=== PATIENT | male | born 1955 | race Two or more races ===

== ENCOUNTER 2017-02-19 13:37 | Inpatient (IN) | payer OTHER ==
[~2017-02-19] VITALS: Ht 175.3 cm; Wt 77.1 kg
[2017-02-19] VITALS (34 sets, daily range): BP systolic 47–115; BP diastolic 18–62
[2017-02-19] MEDS ORDERED: Famotidine 20 MG/ 2ML VIAL IVP ONE (13:45)
[2017-02-19] MEDS ORDERED: UNOBMED (13:51)
[2017-02-19] MEDS ORDERED: Octreotide Acetate 500 MCG in Sodium Chloride 499 ML IV SCH ×2 (14:15→15:00)
[2017-02-19] MEDS ORDERED: SandoSTATIN 50mcg Inj IVP ONE (14:15)
[2017-02-19 14:18] LABS: BASOPHILS % (AUTO) 0.6 % (0.0-2.0); EOSINOPHILS % (AUTO) 0.1 % (0.0-3.0); LYMPHOCYTES % (AUTO) 15.7 % (20.0-45.0); MEAN CORPUSCULAR HEMOGLOBIN 28.4 PG (27.0-31.0); MEAN CORPUSCULAR HGB CONC 31.6 G/DL (32.0-36.0); MEAN CORPUSCULAR VOLUME 90 FL (80-99); MEAN PLATELET VOLUME 8.5 FL (6.5-10.1); MONOCYTES % (AUTO) 7.9 % (1.0-10.0); NEUTROPHILS % (AUTO) 75.7 % (45.0-75.0); PLATELET COUNT 117 K/UL (150-450); RED BLOOD COUNT 3.14 M/UL (4.70-6.10); RED CELL DISTRIBUTION WIDTH 15.3 % (11.6-14.8); WHITE BLOOD COUNT 11.8 K/UL (4.8-10.8)
[2017-02-19 14:27] LABS: INR 1.2 (0.9-1.1); PROTHROMBIN TIME 12.4 SEC (9.30-11.50)
[2017-02-19 14:31] LABS: ALBUMIN/GLOBULIN RATIO 1.2 (1.0-2.7); CALCIUM 7.2 mg/dL (8.6-10.2); CREATININE 1.3 mg/dL (0.7-1.2); GLOMERULAR FILTRATION RATE 56.5 mL/min (>60); POTASSIUM 3.7 mEQ/L (3.4-4.9); TOTAL PROTEIN 5.2 g/dL (6.6-8.7)
[2017-02-19 14:43] LABS: BILIRUBIN,DIRECT 0.3 mg/dL (0.1-0.3)
[2017-02-19] MEDS ORDERED: Midazolam 2mg/2ml Inj ONE ×2 (15:18→15:29)
--- NOTE | 2017-02-19 15:23 | Emergency Room Report ---
History of Present Illness General Chief Complaint: Syncope Source: Patient, EMS (Ulices Dhaliwal) Present Illness HPI Patient is a 61-year-old male brought in by EMS after the hematemesis. Patient noted to have large amount of red blood vomiting. Patient reported having some epigastric pain. He states his prior history of cirrhosis. Patient has history of alcohol abuse. Patient states he had been drinking alcohol earlier in the day. Patient had large amount of hematemesis and had a syncopal episode with EMS. Patient had not been taking any medications. He reports being somewhat thirsty. (Ulices Dhaliwal) Allergies: Coded Allergies: No Known Allergies (Unverified , 02/19/17) Patient History Past Medical History: see triage record Reviewed Nursing Documentation: PMH: Agreed, PSxH: Agreed (Ulices Dhaliwal) Nursing Documentation-PMH Past Medical History: No History, Except For Hx Gastrointestinal Problems: Yes - ETOH ABUSE (Ulices Dhaliwal) Review of Systems All Other Systems: limited - by acuity (Ulices Dhaliwal) Physical Exam Vital Signs Date Time Temp Pulse Resp B/P Pulse Ox O2 Delivery O2 Flow Rate FiO2 02/19/17 13:33 98.8 96 20 88/58 98 Room Air General Appearance: GCS 15, severe distress Eyes: bilateral eye PERRL ENT: normal pharynx, no angioedema, normal voice, other - rhinophyma Neck: full range of motion, supple Respiratory: lungs clear, normal breath sounds, no rhonchi Cardiovascular #1: regular rate, rhythm, no edema, no gallop Musculoskeletal: normal inspection, back normal Neurologic: normal inspection, alert, oriented x3, responsive, interactive media specialist III-XII nml as tested Psychiatric: normal inspection Skin: normal inspection, normal color, no rash, warm/dry (Ulices Dhaliwal) Procedures Critical Care Time Critical Care Time Patient had a critical medical condition which untreated could potentially result in life or limb threatening injury. Total critical care time excluding procedures approximately 45 minutes. (Ulices Dhaliwal) Critical Care Time Total Critical Care Time: 90 min bedside evaluation and treatment excludes procedures (CVP). Reason for critical care: variceal bleed, hypotension, sedation, pressors, transfusion FFP and blood Possible complications: hypotension, hypertension, TN, shock, arrhythmias, metabolic acidosis, end organ damage, respiratory failure. Interventions: transfusions blood and FFP, pressors, sedation Course: Patient with UGI bleed presumed variceal. Intubated and transfused by Dr. Dhaliwal. CVP by me. Continued hypotension on pressors. Repeat transfusions and FFP ordered. Discussed with GI. Repeat evaluations for sedation. Antibiotics ordered for leukocytosis with elevated lactate. Repeat evaluations for hypotension. BP somewhat better before transfer to ICU. Consultations: nursing staff, EMS, pharmacy (repeat discussions regarding sedation), GI data communications software consultant. Performed by: Dr. Rosario Tolerated well condition = critical (Alexei Rosario M.D.) Central Line Central Line : Consent: Emergent Central Line Lumen: triple Maximal Sterile Barrier Tech: yes cap, yes mask, yes sterile gown, yes sterile gloves, yes large sterile sheet, yes hand hygiene, yes chlorhexidine prep Central Line Postion: femoral (R) Complications: none Central Line Post Position: sutured, good blood return Attempts: One Patient Tolerated: Well Progress blood sent for repeat h/h EBL = 5 cc. (Alexei Rosario M.D.) Medical Decision Making Diagnostic Impression: Primary Impression: Hematemesis Qualified Codes: K92.0 - Hematemesis Additional Impressions: Hypotension Qualified Codes: I95.89 - Other hypotension Upper GI bleed Thrombocytopenia Coagulopathy Leukocytosis Qualified Codes: D72.829 - Elevated white blood cell count, unspecified Cirrhosis Qualified Codes: K70.30 - Alcoholic cirrhosis of liver without ascites ER Course Patient presented for hematemesis. Differential diagnosis included wasn't limited to gastritis, peptic ulcer disease, esophageal varices among others.Because of complexity of patient's case laboratory testing and imaging studies were ordered. The patient started on IV fluids. He was given IV Pepcid. Patient is noted to have a large amount of hematemesis while in the emergency department bright red blood. The patient subsequently had a syncopal episode. Patient noted be hypotensive. The patient was intubated for airway protection. Patient was noted to have hypotension. 2 IV access was established. was contacted for GI consult by Dr. Kent. Dr. Kent was contacted for inpatient management due to capitated physician. Labs Test 02/19/17 13:50 White Blood Count 11.8 K/UL (4.8-10.8) Red Blood Count 3.14 M/UL (4.70-6.10) Hemoglobin 8.9 G/DL (14.2-18.0) Hematocrit 28.1 % (42.0-52.0) Mean Corpuscular Volume 90 FL (80-99) Mean Corpuscular Hemoglobin 28.4 PG (27.0-31.0) Mean Corpuscular Hemoglobin Concent 31.6 G/DL (32.0-36.0) Red Cell Distribution Width 15.3 % (11.6-14.8) Platelet Count 117 K/UL (150-450) Mean Platelet Volume 8.5 FL (6.5-10.1) Neutrophils (%) (Auto) 75.7 % (45.0-75.0) Lymphocytes (%) (Auto) 15.7 % (20.0-45.0) Monocytes (%) (Auto) 7.9 % (1.0-10.0) Eosinophils (%) (Auto) 0.1 % (0.0-3.0) Basophils (%) (Auto) 0.6 % (0.0-2.0) Prothrombin Time 12.4 SEC (9.30-11.50) Prothromb Time International Ratio 1.2 (0.9-1.1) Activated Partial Thromboplast Time 30 SEC (23-33) Sodium Level 140 mEQ/L (135-145) Potassium Level 3.7 mEQ/L (3.4-4.9) Chloride Level 101 mEQ/L (98-107) Carbon Dioxide Level 17 mEQ/L (20-30) Anion Gap 22 (5-15) Blood Urea Nitrogen 8 mg/dL (7-23) Creatinine 1.3 mg/dL (0.7-1.2) Estimat Glomerular Filtration Rate 56.5 mL/min (>60) Glucose Level 243 mg/dL (74-106) Calcium Level 7.2 mg/dL (8.6-10.2) Total Bilirubin 1.3 mg/dL (0.0-1.2) Direct Bilirubin 0.3 mg/dL (0.1-0.3) Aspartate Amino Transf (AST/SGOT) 33 U/L (5-40) Alanine Aminotransferase (ALT/SGPT) 16 U/L (3-41) Alkaline Phosphatase 92 U/L (40-129) Total Protein 5.2 g/dL (6.6-8.7) Albumin 2.9 g/dL (3.5-5.2) Globulin 2.3 g/dL Albumin/Globulin Ratio 1.2 (1.0-2.7) Lipase 43 U/L (< 60) (Ulices Dhaliwal) ER Course Please see the note from Dr. Dhaliwal. Her graft patient became hypotensive after the first 2 units of blood. The event was ordered and also 2 units of blood were ordered stat. In addition to that 2 units of fresh frozen plasma have been ordered by Dr. Dhaliwal. I with 4 units of fresh frozen plasma. His blood pressure was 38. Dr. Arango was present emergency department and examined the patient. We discussed the patient's care and the fact that his prognosis was poor. 19:20 BP has been fluctuating. Slightly better with blood. FFP is being given. Sedation with versed inadequate. Fentanyl also added. Unable with hypotension. Repeat versed. Antibiotics ordered for leukocytosis. BP better before transfer to floor. (Alexei Rosario M.D.) Last Vital Signs Date Time Temp Pulse Resp B/P Pulse Ox O2 Delivery O2 Flow Rate FiO2 02/19/17 14:10 92 22 93/62 96 Room Air 02/19/17 13:33 98.8 Status: unchanged (Ulices Dhaliwal) Status: improved (Alexei Rosario M.D.) Disposition: ADMITTED INPATIENT Condition: Critical Referrals: [facility],REFERRING (PCP) Ulices Dhaliwal Feb 19, 2017 15:23 Alexei Rosario M.D. Feb 19, 2017 15:27
[2017-02-19] MEDS ORDERED: Midazolam 2mg/2ml Inj IVP ONE ×3 (15:30→16:00)
[2017-02-19] MEDS ORDERED: Nitroglycerin Subl 0.4mg tab (Bottle Of 25) SL PRN (15:45)
[2017-02-19] MEDS ORDERED: Phytonadione 10 mg/mL 1ml amp ONE ×2 (15:49→15:55)
[2017-02-19] MEDS ORDERED: Pantoprazole Inj ONE (15:50)
[2017-02-19] MEDS ORDERED: Morphine Sulfate 2mg/ml Inj IVP PRN (16:00)
[2017-02-19] MEDS: Midazolam for drip 50 MG in D5W 90 ML IV SCH ×2 (16:19→18:37)
[2017-02-19] MEDS ORDERED: Phytonadione 10 MG in D5W 55 ML IVPB ONE (16:30)
[2017-02-19 16:33] LABS: MEAN CORPUSCULAR HEMOGLOBIN 31.6 PG (27.0-31.0); MEAN CORPUSCULAR HGB CONC 35.2 G/DL (32.0-36.0); MEAN CORPUSCULAR VOLUME 90 FL (80-99); MEAN PLATELET VOLUME 10.2 FL (6.5-10.1); PLATELET COUNT 100 K/UL (150-450); RED BLOOD COUNT 2.56 M/UL (4.70-6.10); RED CELL DISTRIBUTION WIDTH 15.4 % (11.6-14.8); WHITE BLOOD COUNT 19.4 K/UL (4.8-10.8)
[2017-02-19] MEDS: DOPamine 400mg/250ml 250 ML IV SCH ×2 (16:38→21:34)
[2017-02-19] MEDS ORDERED: Pantoprazole 80 MG in NS 250ml IV ONE (16:45)
[2017-02-19] MEDS ORDERED: ESOMEPRAZOLE SODIUM IV SCH (17:00)
[2017-02-19] MEDS ORDERED: NS IV SCH (17:00)
[2017-02-19] MEDS ORDERED: Esomeprazole sodium 40mg vial IVP ONE (17:00)
[2017-02-19] MEDS ORDERED: Levophed 4mg/4mL Inj IV ONE ×2 (17:11→19:42)
[2017-02-19 17:24] LABS: REFLEX LACTIC ACID YES OR NO YES
[2017-02-19 18:13] LABS: ANISOCYTOSIS 1+; BAND NEUTROPHILS % (MANUAL) 5 % (0-8); BASOPHILS % (MANUAL) 0 % (0-2); EOSINOPHILS % (MANUAL) 0 % (0-3); HYPOCHROMASIA 1+; LYMPHOCYTES % (MANUAL) 5 % (20-45); NEUTROPHILS % (MANUAL) 86 % (45-75); PLATELET ESTIMATE DECREASED; PLATELET MORPHOLOGY NORMAL; TOTAL CELLS COUNTED 100
--- NOTE | 2017-02-19 19:00 | History and Physical ---
History of Present Illness General Date patient seen: Feb 19, 2017 Reason for Hospitalization: Syncope Present Illness HPI 61-year-old male with hx of ETOH abuse, liver cirrhosis brought in by EMS after the hematemesis. Patient noted to have large amount of red blood vomiting. Patient states he had been drinking alcohol earlier in the day. Patient had large amount of hematemesis and had a syncopal episode with EMS. He was intubated in ER to protect his airway. GI is called already for endoscopy. Allergies: Coded Allergies: No Known Allergies (Unverified , 02/19/17) Medication History Miscellaneous Medications Unable to Obtain Medications (Unable To Obtain Meds), (Reported) Patient History Healthcare decision maker Resuscitation status Advanced Directive on File Past Medical/Surgical History Past Medical/Surgical History: (1) ETOH abuse (2) Cirrhosis Review of Systems All Other Systems: negative except mentioned in HPI Physical Exam General Appearance: WD/WN Lines, tubes and drains: peripheral HEENT: normocephalic, atraumatic Neck: non-tender, normal alignment Respiratory/Chest: chest wall non-tender, lungs clear Breasts: no masses Cardiovascular/Chest: normal peripheral pulses Abdomen: normal bowel sounds Genitourinary/Rectal: normal genital exam Extremities: normal range of motion Neurologic: bobbin disker II-XII grossly normal Last 24 Hour Vital Signs Date Time Temp Pulse Resp B/P Pulse Ox O2 Delivery O2 Flow Rate FiO2 02/19/17 18:37 171/111 02/19/17 18:37 31 02/19/17 17:16 47/29 02/19/17 17:05 114 20 100 02/19/17 16:51 100 02/19/17 16:48 90/46 02/19/17 16:44 74/40 02/19/17 16:38 91/59 02/19/17 16:19 19 02/19/17 15:16 101 14 100 02/19/17 14:10 92 22 93/62 96 Room Air 02/19/17 13:53 93 22 Room Air 02/19/17 13:45 92 21 83/49 99 Room Air 02/19/17 13:33 98.8 96 20 88/58 98 Room Air Laboratory Tests Test 02/19/17 13:50 02/19/17 16:25 White Blood Count 11.8 K/UL (4.8-10.8) H 19.4 K/UL (4.8-10.8) #H Red Blood Count 3.14 M/UL (4.70-6.10) L 2.56 M/UL (4.70-6.10) L Hemoglobin 8.9 G/DL (14.2-18.0) L 8.1 G/DL (14.2-18.0) L Hematocrit 28.1 % (42.0-52.0) L 23.0 % (42.0-52.0) L Mean Corpuscular Volume 90 FL (80-99) 90 FL (80-99) Mean Corpuscular Hemoglobin 28.4 PG (27.0-31.0) 31.6 PG (27.0-31.0) H Mean Corpuscular Hemoglobin Concent 31.6 G/DL (32.0-36.0) L 35.2 G/DL (32.0-36.0) Red Cell Distribution Width 15.3 % (11.6-14.8) H 15.4 % (11.6-14.8) H Platelet Count 117 K/UL (150-450) L 100 K/UL (150-450) L Mean Platelet Volume 8.5 FL (6.5-10.1) 10.2 FL (6.5-10.1) H Neutrophils (%) (Auto) 75.7 % (45.0-75.0) H % (45.0-75.0) Lymphocytes (%) (Auto) 15.7 % (20.0-45.0) L % (20.0-45.0) Monocytes (%) (Auto) 7.9 % (1.0-10.0) % (1.0-10.0) Eosinophils (%) (Auto) 0.1 % (0.0-3.0) % (0.0-3.0) Basophils (%) (Auto) 0.6 % (0.0-2.0) % (0.0-2.0) Prothrombin Time 12.4 SEC (9.30-11.50) H Prothromb Time International Ratio 1.2 (0.9-1.1) H Activated Partial Thromboplast Time 30 SEC (23-33) Sodium Level 140 mEQ/L (135-145) Potassium Level 3.7 mEQ/L (3.4-4.9) Chloride Level 101 mEQ/L (98-107) Carbon Dioxide Level 17 mEQ/L (20-30) L Anion Gap 22 (5-15) H Blood Urea Nitrogen 8 mg/dL (7-23) Creatinine 1.3 mg/dL (0.7-1.2) H Estimat Glomerular Filtration Rate 56.5 mL/min (>60) Glucose Level 243 mg/dL (74-106) H Lactic Acid Level 11.60 mmol/L (0.66-2.22) H Calcium Level 7.2 mg/dL (8.6-10.2) L Total Bilirubin 1.3 mg/dL (0.0-1.2) H Direct Bilirubin 0.3 mg/dL (0.1-0.3) Aspartate Amino Transf (AST/SGOT) 33 U/L (5-40) Alanine Aminotransferase (ALT/SGPT) 16 U/L (3-41) Alkaline Phosphatase 92 U/L (40-129) Total Protein 5.2 g/dL (6.6-8.7) L Albumin 2.9 g/dL (3.5-5.2) L Globulin 2.3 g/dL Albumin/Globulin Ratio 1.2 (1.0-2.7) Lipase 43 U/L (< 60) Differential Total Cells Counted 100 Neutrophils % (Manual) 86 % (45-75) H Lymphocytes % (Manual) 5 % (20-45) L Monocytes % (Manual) 4 % (1-10) Eosinophils % (Manual) 0 % (0-3) Basophils % (Manual) 0 % (0-2) Band Neutrophils 5 % (0-8) Platelet Estimate Decreased L Platelet Morphology Normal Hypochromasia 1+ Anisocytosis 1+ Height (Feet): 5 Height (Inches): 9.00 Weight (Pounds): 170 Medications Current Medications Medications (Trade) Dose Ordered Sig/Chela Route PRN Reason Start Time Stop Time Status Last Admin Dose Admin Acetaminophen (Tylenol) 650 mg Q4H PRN ORAL fever 02/19/17 16:30 03/21/17 16:29 Dextrose STAT PRN IV Hypoglycemia 02/19/17 15:45 03/21/17 15:44 Dextrose/Sodium Chloride 1,000 ml @ 100 mls/hr Q10H IV 8/11/17 17:30 03/21/17 17:29 Dopamine HCl/ Dextrose 250 ml @ 0 mls/hr Q24H IV 02/19/17 16:00 03/21/17 15:59 02/19/17 16:38 Esomeprazole Sodium 80 mg/ Sodium Chloride 250 ml @ 25 mls/hr Q10H IV 02/19/17 17:00 03/21/17 16:59 Midazolam HCl/ Dextrose (Versed/D5W) 100 ml @ 0 mls/hr Q24H IV 02/19/17 15:30 03/21/17 15:29 02/19/17 18:37 Morphine Sulfate (Morphine Sulfate) 2 mg Q4H PRN IVP severe Pain (Pain Scale 7-10) 02/19/17 16:00 02/26/17 15:59 Nitroglycerin (Ntg) 0.4 mg Q5M X 3 DOSES PRN SL Prn Chest Pain 02/19/17 15:45 03/21/17 15:44 Norepinephrine Bitartrate/ Dextrose (Levophed/D5W) 250 ml @ 0 mls/hr Q24H IV 02/19/17 17:15 03/21/17 17:14 02/19/17 17:16 Octreotide Acetate 500 mcg/ Sodium Chloride 500 ml @ 50 mls/hr Q10H IV 02/19/17 15:00 03/21/17 14:59 02/19/17 14:41 Ondansetron HCl (Zofran) 4 mg Q6H PRN IVP Nausea & Vomiting 02/19/17 15:45 03/21/17 15:44 Assessment/Plan Problem List: (1) Respiratory failure, acute ICD Codes: J96.00 - Acute respiratory failure, unspecified whether with hypoxia or hypercapnia SNOMED: 04525429 (2) Hematemesis ICD Codes: K92.0 - Hematemesis SNOMED: 7050727 Qualifiers: Qualified Codes: K92.0 - Hematemesis (3) Thrombocytopenia ICD Codes: D69.6 - Thrombocytopenia, unspecified SNOMED: 229103741 (4) Hypotension ICD Codes: I95.9 - Hypotension, unspecified SNOMED: 18404809 Qualifiers: Qualified Codes: I95.89 - Other hypotension (5) Upper GI bleed ICD Codes: K92.2 - Gastrointestinal hemorrhage, unspecified SNOMED: 93183097 (6) ETOH abuse ICD Codes: F10.10 - Alcohol abuse, uncomplicated SNOMED: 46994298 Respiratory: monitor respiratory rate, adjust FIO2, CXR Cardiac: stop pressors, continue to monitor HR/BP Renal: F/U I&O, check electrolytes Infectious Disease: check cultures Gastrointestinal: continue feedings/current rate Endocrine: monitor blood sugar, check TSH Hematologic: monitor H/H Neurologic: PRN Ativan Affect: PRN ativan Prophylaxis: Heparin Disposition: keep in ICU Discussed with: nurses, consultants, heel caser ROSALIE MIDDLETON Feb 19, 2017 18:59
[2017-02-19 19:43] LABS: MEAN CORPUSCULAR HEMOGLOBIN 32.3 PG (27.0-31.0); MEAN CORPUSCULAR HGB CONC 33.4 G/DL (32.0-36.0); MEAN CORPUSCULAR VOLUME 97 FL (80-99); MEAN PLATELET VOLUME 9.9 FL (6.5-10.1); PLATELET COUNT 31 K/UL (150-450); RED BLOOD COUNT 2.67 M/UL (4.70-6.10); RED CELL DISTRIBUTION WIDTH 13.4 % (11.6-14.8); WHITE BLOOD COUNT 12.5 K/UL (4.8-10.8)
[2017-02-19] MEDS ORDERED: metroNIDAZOLE 500mg 100 ML IVPB ONE (19:45)
[2017-02-19] MEDS ORDERED: Cefepime HCl 1 GM in D5W 55 ML IVPB ONE (19:45)
[2017-02-19 20:09] LABS: ALBUMIN/GLOBULIN RATIO 1.7 (1.0-2.7); CALCIUM 6.6 mg/dL (8.6-10.2); CREATININE 1.3 mg/dL (0.7-1.2); GLOMERULAR FILTRATION RATE 56.5 mL/min (>60); POTASSIUM 4.8 mEQ/L (3.4-4.9); TOTAL PROTEIN 2.7 g/dL (6.6-8.7)
[2017-02-19] MEDS ORDERED: Midazolam for drip 50 MG in D5W 90 ML IV SCH (21:01)
[2017-02-19 21:39] LABS: BAND NEUTROPHILS % (MANUAL) 6 % (0-8); LYMPHOCYTES % (MANUAL) 15 % (20-45); NEUTROPHILS % (MANUAL) 75 % (45-75); TOTAL CELLS COUNTED 100
[2017-02-19 21:40] LABS: ANISOCYTOSIS 1+; BASOPHILS % (MANUAL) 0 % (0-2); EOSINOPHILS % (MANUAL) 0 % (0-3); HYPOCHROMASIA 1+; PLATELET ESTIMATE DECREASED; PLATELET MORPHOLOGY NORMAL
[2017-02-19 21:56] LABS: MEAN CORPUSCULAR HEMOGLOBIN 32.4 PG (27.0-31.0); MEAN CORPUSCULAR HGB CONC 33.2 G/DL (32.0-36.0); MEAN CORPUSCULAR VOLUME 98 FL (80-99); PLATELET COUNT 31 K/UL (150-450); RED BLOOD COUNT 2.58 M/UL (4.70-6.10); RED CELL DISTRIBUTION WIDTH 13.5 % (11.6-14.8)
[2017-02-19 21:58] LABS: ALBUMIN/GLOBULIN RATIO 1.4 (1.0-2.7); CALCIUM 6.4 mg/dL (8.6-10.2); CREATININE 1.5 mg/dL (0.7-1.2); GLOMERULAR FILTRATION RATE 47.9 mL/min (>60); POTASSIUM 4.7 mEQ/L (3.4-4.9); TOTAL PROTEIN 3.7 g/dL (6.6-8.7)
[2017-02-19 21:59] LABS: INR 1.4 (0.9-1.1); PROTHROMBIN TIME 15.2 SEC (9.30-11.50)
[2017-02-19 22:14] LABS: REFLEX LACTIC ACID YES OR NO YES
[2017-02-19 22:18] LABS: BILIRUBIN,DIRECT 0.4 mg/dL (0.1-0.3)
[2017-02-19 22:23] LABS: WHITE BLOOD COUNT 25.5 K/UL (4.8-10.8)
--- NOTE | 2017-02-19 22:45 | General Progress Note ---
Assessment/Plan Assessment/Plan GI ADDENDUM Multiple calls made to ICU tonight. Patient came from ER to ICU on two maximum rate pressors and still hypotensive. Attempts made to transfuse patient until stable for endoscopy. Labs repeated at 2130 and received and reviewed at 0. Despite multiple transfusions, patient has become more hypotensive, acidotic, and with a higher WBC. Will arrange for emergency endoscopy tonight but patient appeared critical, moribund, and unstable at all times tonight. His prognosis has been very poor for the few hours he has arrived at ICU and chances of survival has been felt to be minimal. Romario Patel MD Subjective Allergies: Coded Allergies: No Known Allergies (Unverified , 02/19/17) Objective Last 24 Hour Vital Signs Date Time Temp Pulse Resp B/P Pulse Ox O2 Delivery O2 Flow Rate FiO2 02/19/17 21:34 90/47 02/19/17 21:17 101 24 100 02/19/17 20:39 100 02/19/17 20:30 102 24 105/39 100 Mechanical Ventilator 100 02/19/17 20:15 94.1 101 25 82/41 100 Mechanical Ventilator 100 02/19/17 20:15 101 02/19/17 19:20 114 24 100 02/19/17 19:03 98.8 102 29 69/27 100 Mechanical Ventilator 100 02/19/17 18:51 94.6 106 32 66/30 7 Room Air 100 02/19/17 18:37 171/111 02/19/17 18:37 31 02/19/17 18:29 95.0 110 56/43 Mechanical Ventilator 100 02/19/17 17:16 47/29 02/19/17 17:05 114 20 100 02/19/17 16:51 100 02/19/17 16:48 90/46 02/19/17 16:44 74/40 02/19/17 16:38 91/59 02/19/17 16:19 19 02/19/17 15:22 96.8 100 81/50 100 02/19/17 15:16 101 14 100 02/19/17 14:10 92 22 93/62 96 Room Air 02/19/17 13:53 93 22 Room Air 02/19/17 13:45 92 21 83/49 99 Room Air 02/19/17 13:33 98.8 96 20 88/58 98 Room Air Laboratory Tests 02/19/17 13:50: White Blood Count 11.8H, Red Blood Count 3.14L, Hemoglobin 8.9L, Hematocrit 28.1L, Mean Corpuscular Volume 90, Mean Corpuscular Hemoglobin 28.4, Mean Corpuscular Hemoglobin Concent 31.6L, Red Cell Distribution Width 15.3H, Platelet Count 117L, Mean Platelet Volume 8.5, Neutrophils (%) (Auto) 75.7H, Lymphocytes (%) (Auto) 15.7L, Monocytes (%) (Auto) 7.9, Eosinophils (%) (Auto) 0.1, Basophils (%) (Auto) 0.6, Prothrombin Time 12.4H, Prothromb Time International Ratio 1.2H, Activated Partial Thromboplast Time 30, Sodium Level 140, Potassium Level 3.7, Chloride Level 101, Carbon Dioxide Level 17L, Anion Gap 22H, Blood Urea Nitrogen 8, Creatinine 1.3H, Estimat Glomerular Filtration Rate 56.5, Glucose Level 243H, Lactic Acid Level 11.60H, Calcium Level 7.2L, Total Bilirubin 1.3H, Direct Bilirubin 0.3, Aspartate Amino Transf (AST/SGOT) 33 , Alanine Aminotransferase (ALT/SGPT) 16, Alkaline Phosphatase 92, Total Protein 5.2L, Albumin 2.9L, Globulin 2.3, Albumin/Globulin Ratio 1.2, Lipase 43 02/19/17 16:25: White Blood Count 19.4#H, Red Blood Count 2.56L, Hemoglobin 8.1L, Hematocrit 23.0L, Mean Corpuscular Volume 90, Mean Corpuscular Hemoglobin 31.6H, Mean Corpuscular Hemoglobin Concent 35.2, Red Cell Distribution Width 15.4H, Platelet Count 100L, Mean Platelet Volume 10.2H, Neutrophils (%) (Auto) , Lymphocytes (%) (Auto) , Monocytes (%) (Auto) , Eosinophils (%) (Auto) , Basophils (%) (Auto) , Differential Total Cells Counted 100, Neutrophils % ( Manual) 86H, Lymphocytes % (Manual) 5L, Monocytes % (Manual) 4, Eosinophils % ( Manual) 0, Basophils % (Manual) 0, Band Neutrophils 5, Platelet Estimate DecreasedL, Platelet Morphology Normal, Hypochromasia 1+, Anisocytosis 1+ 02/19/17 19:28: White Blood Count 12.5H, Red Blood Count 2.67L, Hemoglobin 8.6L, Hematocrit 25.8L, Mean Corpuscular Volume 97, Mean Corpuscular Hemoglobin 32.3H, Mean Corpuscular Hemoglobin Concent 33.4, Red Cell Distribution Width 13.4, Platelet Count 31#L, Mean Platelet Volume 9.9, Neutrophils (%) (Auto) , Lymphocytes (%) ( Auto) , Monocytes (%) (Auto) , Eosinophils (%) (Auto) , Basophils (%) (Auto) , Sodium Level 141, Potassium Level 4.8, Chloride Level 104, Carbon Dioxide Level 8*L, Anion Gap 29H, Blood Urea Nitrogen 9, Creatinine 1.3H, Estimat Glomerular Filtration Rate 56.5, Glucose Level 362#H, Calcium Level 6.6L, Total Bilirubin 0.8, Aspartate Amino Transf (AST/SGOT) 45H, Alanine Aminotransferase (ALT/SGPT) 28, Alkaline Phosphatase 40, Total Protein 2.7#L, Albumin 1.7L, Globulin 1.0, Albumin/Globulin Ratio 1.7, Differential Total Cells Counted 100, Neutrophils % (Manual) 75, Lymphocytes % (Manual) 15L, Monocytes % (Manual) 4, Eosinophils % ( Manual) 0, Basophils % (Manual) 0, Band Neutrophils 6, Platelet Estimate DecreasedL, Platelet Morphology Normal, Hypochromasia 1+, Anisocytosis 1+ 02/19/17 19:42: Lactic Acid Level 16.30H 02/19/17 21:30: White Blood Count 25.5#*H, Red Blood Count 2.58L, Hemoglobin 8.3L, Hematocrit 25.2L, Mean Corpuscular Volume 98, Mean Corpuscular Hemoglobin 32.4H, Mean Corpuscular Hemoglobin Concent 33.2, Red Cell Distribution Width 13.5, Platelet Count 31L, Mean Platelet Volume 10.0, Neutrophils (%) (Auto) , Lymphocytes (%) ( Auto) , Monocytes (%) (Auto) , Eosinophils (%) (Auto) , Basophils (%) (Auto) , Neutrophils % (Manual) [Pending], Lymphocytes % (Manual) [Pending], Platelet Estimate [Pending], Platelet Morphology [Pending], Prothrombin Time 15.2H, Prothromb Time International Ratio 1.4H, Activated Partial Thromboplast Time 77H , Sodium Level 140, Potassium Level 4.7, Chloride Level 102, Carbon Dioxide Level 7*L, Anion Gap 31H, Blood Urea Nitrogen 10, Creatinine 1.5H, Estimat Glomerular Filtration Rate 47.9, Glucose Level 355H, Lactic Acid Level 19.00H, Calcium Level 6.4L, Total Bilirubin 1.4H, Direct Bilirubin 0.4H, Aspartate Amino Transf (AST/SGOT) 290H, Alanine Aminotransferase (ALT/SGPT) 190H, Alkaline Phosphatase 65, Total Protein 3.7#L, Albumin 2.2L, Globulin 1.5, Albumin/Globulin Ratio 1.4 Height (Feet): 5 Height (Inches): 9.00 Weight (Pounds): 170 ROMARIO PATEL Feb 19, 2017 22:45
[2017-02-19] MEDS ORDERED: Piperacillin/Tazobactam 3.375 GM in D5W 110 ML IVPB SCH (23:00)
[2017-02-19 23:12] LABS: ANISOCYTOSIS 1+; BAND NEUTROPHILS % (MANUAL) 0 % (0-8); BASOPHILS % (MANUAL) 0 % (0-2); EOSINOPHILS % (MANUAL) 0 % (0-3); HYPOCHROMASIA 1+; LYMPHOCYTES % (MANUAL) 12 % (20-45); NEUTROPHILS % (MANUAL) 80 % (45-75); PLATELET ESTIMATE DECREASED; PLATELET MORPHOLOGY NORMAL; TOTAL CELLS COUNTED 100
[2017-02-19 23:22] LABS: ABG PCO2 21.7 mmHg (35.0-45.0)
[2017-02-19 23:23] LABS: ABG ALLEN TEST POSITIVE; ABG BASE EXCESS -25.7
[2017-02-20] VITALS (40 sets, daily range): BP systolic 43–160; BP diastolic 11–120
[2017-02-20] MEDS ORDERED: Sodium Bicarbonate 50ml Carp ONE (00:11)
--- NOTE | 2017-02-20 00:20 | Anethesia Preoperative Eval ---
Anesthesia Pre-op PMH/ROS General Date of Evaluation: Feb 20, 2017 Time of Evaluation: 22:56 Anesthesiologist: Poncho ASA Score: ASA 5 - Emergency Mallampati Score Class I : Soft palate, uvula, fauces, pillars visible Class II: Soft palate, uvula, fauces visible Class III: Soft palate, base of uvula visible Class IV: Only hard plate visible Mallampati Classification: Class III Surgeon: Amanda Diagnosis: GI Bleed Surgical Procedure: EGD with Banding Anesthesia History: none Social History: alcohol use - Abuse Family History: no anesthesia problems Allergies: Coded Allergies: No Known Allergies (Unverified , 02/19/17) Medications: see eMAR Past Medical History Gastrointestinal/Genitourinary: Reports: other - GI Bleed Hematology/Immune: Reports: anemia PMH Narrative: Pt Found Down Anesthesia Pre-op Phys. Exam Physician Exam Last Vital Signs Date Time Temp Pulse Resp B/P Pulse Ox O2 Delivery O2 Flow Rate FiO2 02/19/17 23:05 105 25 100 02/19/17 21:34 90/47 02/19/17 20:30 100 Mechanical Ventilator 02/19/17 20:15 94.1 Constitutional: NAD Neurologic: CN 2-12 intact Cardiovascular: RRR Respiratory: CTA Gastrointestinal: S/NT/ND Airway Exam Mallampati Score: Class III MO: limited ROM: limited Teeth: missing Anesthesia Pre-op A/P Labs Hematology Test 02/19/17 13:50 02/19/17 16:25 02/19/17 19:28 02/19/17 21:30 White Blood Count 11.8 K/UL (4.8-10.8) H 19.4 K/UL (4.8-10.8) #H 12.5 K/UL (4.8-10.8) H 25.5 K/UL (4.8-10.8) #*H Red Blood Count 3.14 M/UL (4.70-6.10) L 2.56 M/UL (4.70-6.10) L 2.67 M/UL (4.70-6.10) L 2.58 M/UL (4.70-6.10) L Hemoglobin 8.9 G/DL (14.2-18.0) L 8.1 G/DL (14.2-18.0) L 8.6 G/DL (14.2-18.0) L 8.3 G/DL (14.2-18.0) L Hematocrit 28.1 % (42.0-52.0) L 23.0 % (42.0-52.0) L 25.8 % (42.0-52.0) L 25.2 % (42.0-52.0) L Mean Corpuscular Volume 90 FL (80-99) 90 FL (80-99) 97 FL (80-99) 98 FL ( 80-99) Mean Corpuscular Hemoglobin 28.4 PG (27.0-31.0) 31.6 PG (27.0-31.0) H 32.3 PG (27.0-31.0) H 32.4 PG (27.0-31.0) H Mean Corpuscular Hemoglobin Concent 31.6 G/DL (32.0-36.0) L 35.2 G/DL (32.0-36.0) 33.4 G/DL (32.0-36.0) 33.2 G/DL (32.0-36.0) Red Cell Distribution Width 15.3 % (11.6-14.8) H 15.4 % (11.6-14.8) H 13.4 % (11.6-14.8) 13.5 % (11.6-14.8) Platelet Count 117 K/UL (150-450) L 100 K/UL (150-450) L 31 K/UL (150-450) #L 31 K/UL (150-450) L Mean Platelet Volume 8.5 FL (6.5-10.1) 10.2 FL (6.5-10.1) H 9.9 FL (6.5-10.1) 10.0 FL (6.5-10.1) Neutrophils (%) (Auto) 75.7 % (45.0-75.0) H % (45.0-75.0) % (45.0-75.0) % (45.0-75.0) Lymphocytes (%) (Auto) 15.7 % (20.0-45.0) L % (20.0-45.0) % (20.0-45.0) % (20.0-45.0) Monocytes (%) (Auto) 7.9 % (1.0-10.0) % (1.0-10.0) % (1.0-10.0) % (1.0-10.0) Eosinophils (%) (Auto) 0.1 % (0.0-3.0) % (0.0-3.0) % (0.0-3.0) % (0.0-3.0) Basophils (%) (Auto) 0.6 % (0.0-2.0) % (0.0-2.0) % (0.0-2.0) % (0.0-2.0) Differential Total Cells Counted 100 100 100 Neutrophils % (Manual) 86 % (45-75) H 75 % (45-75) 80 % (45-75) H Lymphocytes % (Manual) 5 % (20-45) L 15 % (20-45) L 12 % (20-45) L Monocytes % (Manual) 4 % (1-10) 4 % (1-10) 8 % (1-10) Eosinophils % (Manual) 0 % (0-3) 0 % (0-3) 0 % (0-3) Basophils % (Manual) 0 % (0-2) 0 % (0-2) 0 % (0-2) Band Neutrophils 5 % (0-8) 6 % (0-8) 0 % (0-8) Platelet Estimate Decreased L Decreased L Decreased L Platelet Morphology Normal Normal Normal Hypochromasia 1+ 1+ 1+ Anisocytosis 1+ 1+ 1+ Coagulation Test 02/19/17 13:50 02/19/17 21:30 Prothrombin Time 12.4 SEC (9.30-11.50) H 15.2 SEC (9.30-11.50) H Prothromb Time International Ratio 1.2 (0.9-1.1) H 1.4 (0.9-1.1) H Activated Partial Thromboplast Time 30 SEC (23-33) 77 SEC (23-33) H Chemistry Test 02/19/17 13:50 02/19/17 19:28 02/19/17 19:42 02/19/17 21:30 Sodium Level 140 mEQ/L (135-145) 141 mEQ/L (135-145) 140 mEQ/L (135-145) Potassium Level 3.7 mEQ/L (3.4-4.9) 4.8 mEQ/L (3.4-4.9) 4.7 mEQ/L (3.4-4.9) Chloride Level 101 mEQ/L (98-107) 104 mEQ/L (98-107) 102 mEQ/L (98-107) Carbon Dioxide Level 17 mEQ/L (20-30) L 8 mEQ/L (20-30) *L 7 mEQ/L (20-30) *L Anion Gap 22 (5-15) H 29 (5-15) H 31 (5-15) H Blood Urea Nitrogen 8 mg/dL (7-23) 9 mg/dL (7-23) 10 mg/dL (7-23) Creatinine 1.3 mg/dL (0.7-1.2) H 1.3 mg/dL (0.7-1.2) H 1.5 mg/dL (0.7-1.2) H Estimat Glomerular Filtration Rate 56.5 mL/min (>60) 56.5 mL/min (>60) 47.9 mL/min (>60) Glucose Level 243 mg/dL (74-106) H 362 mg/dL (74-106) #H 355 mg/dL (74-106) H Lactic Acid Level 11.60 mmol/L (0.66-2.22) H 16.30 mmol/L (0.66-2.22) H 19.00 mmol/L (0.66-2.22) H Calcium Level 7.2 mg/dL (8.6-10.2) L 6.6 mg/dL (8.6-10.2) L 6.4 mg/dL (8.6-10.2) L Total Bilirubin 1.3 mg/dL (0.0-1.2) H 0.8 mg/dL (0.0-1.2) 1.4 mg/dL (0.0-1.2) H Direct Bilirubin 0.3 mg/dL (0.1-0.3) 0.4 mg/dL (0.1-0.3) H Aspartate Amino Transf (AST/SGOT) 33 U/L (5-40) 45 U/L (5-40) H 290 U/L (5-40) H Alanine Aminotransferase (ALT/SGPT) 16 U/L (3-41) 28 U/L (3-41) 190 U/L (3-41) H Alkaline Phosphatase 92 U/L (40-129) 40 U/L (40-129) 65 U/L (40-129) Total Protein 5.2 g/dL (6.6-8.7) L 2.7 g/dL (6.6-8.7) #L 3.7 g/dL (6.6-8.7) #L Albumin 2.9 g/dL (3.5-5.2) L 1.7 g/dL (3.5-5.2) L 2.2 g/dL (3.5-5.2) L Globulin 2.3 g/dL 1.0 g/dL 1.5 g/dL Albumin/Globulin Ratio 1.2 (1.0-2.7) 1.7 (1.0-2.7) 1.4 (1.0-2.7) Lipase 43 U/L (< 60) Risk Assessment & Plan Assessment: ASA 5E Plan: GA Status Change Before Surgery: No Dieudonne Isaac MD Feb 20, 2017 00:20
[2017-02-20] MEDS ORDERED: EPINEPHrine 1mg/1ml Amp 1 MG in D5W 249 ML IV SCH ×2 (00:30→00:45)
[2017-02-20] MEDS ORDERED: D5W w/Sodium Bicarb 3 amps 1000 ml IV SCH ×2 (00:45)
--- NOTE | 2017-02-20 00:50 | Immediate Post-Op Evaluation ---
Immediate Post-Op Evalulation Immediate Post-Op Evalulation Procedure: EGD with Banding Date of Evaluation: Feb 20, 2017 Time of Evaluation: 00:59 IV Fluids: 900 LR Blood Products: 3 u PRBC Estimated Blood Loss: 1 L Urinary Output: 200 Blood Pressure Systolic: 145 Blood Pressure Diastolic: 101 Pulse Rate: 89 Respiratory Rate: 20 - Mech Vent O2 Sat by Pulse Oximetry: 100 Temperature (Fahrenheit): 98.6 Pain Score (1-10): 0 Nausea: No Vomiting: No Complications 0 Patient Status: no response, ventilated, none Hydration Status: adequate Dieudonne Isaac MD Feb 20, 2017 00:50
--- NOTE | 2017-02-20 00:51 | Pre-Procedure Note/Attestation ---
Pre-Procedure Note/Attestation Complete Prior to Procedure Planned Procedure: not applicable Procedure Narrative: EGD Indications for Procedure Pre-Operative Diagnosis: UGIB Attestation This attestation is done post procedure due to highly emergency nature of the procedure. No family available to discuss procedure. Done under emergency condition. No family available to discuss transfusion. Transfused under emergency. I attest that I re-evaluated the patient just prior to the surgery and that there has been no change in the patient's H&P, except as documented. ANDRE JARRELL Feb 20, 2017 00:50
--- NOTE | 2017-02-20 00:52 | Endoscopy Procedure Note ---
Endoscopy Procedure Note Indication for Procedure: UGIB Procedures Performed: EGD Operative Findings/Diagnosis: EBL, clipping Specimen: none Pt Tolerated Procedure Well: No Estimated Blood Loss: volume - 500 cc of blood, plus more old blood in stomach Anesthesiologist: Poncho Anesthesia: MAC Medication Given: see anesthesia record Implant(s) used?: No 50 yrs or older w/o bx or poly: Not Applicable ANDRE JARRELL Feb 20, 2017 00:52
--- NOTE | 2017-02-20 00:52 | 48 Hour Post Anesthesia Eval ---
Post Anesthesia Evaluation Procedure: EGD with Banding Date of Evaluation: Feb 20, 2017 Time of Evaluation: 03:11 Blood Pressure Systolic: 92 0: 45 Pulse Rate: 74 Respiratory Rate: 20 - Mech Vent Temperature (Fahrenheit): 98.6 O2 Sat by Pulse Oximetry: 100 Airway: patent Nausea: No Vomiting: No Pain Intensity: 0 Hydration Status: adequate Cardiopulmonary Status: Guarded Mental Status/LOC: other - ICU, Intubated Follow-up Care/Observations: 0 Post-Anesthesia Complications: 0 Dieudonne Isaac MD Feb 20, 2017 00:52
--- NOTE | 2017-02-20 00:54 | Brief Operative Note ---
Immediate Post Operative Note Operative Note Chief Complaint: UGIB Pre-op Diagnosis: UGIB Procedure: EGD, EBL, endo clipping Post-op Diagnosis: UGIB due to varix Surgeon: Amanda Anesthesiologist: Poncho Anesthesia: MAC Specimen: none Complications: none Condition: unstable Estimated Blood Loss: volume - 500 cc (+) old blood Drains: none Implant(s) used?: No ANDRE JARRELL Feb 20, 2017 00:54
--- NOTE | 2017-02-20 01:00 | General Progress Note ---
Assessment/Plan Assessment/Plan GI ADDENDUM Critical care time 2 1/2 hours Patient transfused with 2 additional units of blood Pulsed epinephrine given in small doses to maintain pressure Endoscopy performed - technically difficult since esophagus and stomach full of blood and clots Two actively pumping lower esophageal vessels seen, on a surrounding bed of scarred varicies Vessels clipped x 2, and subsequently 5 bands placed Acceptable hemostasis achieved. Patient still at high risk of rebleed with significant risk of mortality. Keep NPO. No NGT. Serial CBC/INR. Will likely need ongoing blood products. Would correct INR and Platelets aggressively. Romario Patel Subjective Allergies: Coded Allergies: No Known Allergies (Unverified , 02/19/17) Objective Last 24 Hour Vital Signs Date Time Temp Pulse Resp B/P Pulse Ox O2 Delivery O2 Flow Rate FiO2 02/19/17 21:34 90/47 02/19/17 21:17 101 24 100 02/19/17 20:39 100 02/19/17 20:30 102 24 105/39 100 Mechanical Ventilator 100 02/19/17 20:15 94.1 101 25 82/41 100 Mechanical Ventilator 100 02/19/17 20:15 101 02/19/17 19:20 114 24 100 02/19/17 19:03 98.8 102 29 69/27 100 Mechanical Ventilator 100 02/19/17 18:51 94.6 106 32 66/30 7 Room Air 100 02/19/17 18:37 171/111 02/19/17 18:37 31 02/19/17 18:29 95.0 110 56/43 Mechanical Ventilator 100 02/19/17 17:16 47/29 02/19/17 17:05 114 20 100 02/19/17 16:51 100 02/19/17 16:48 90/46 02/19/17 16:44 74/40 02/19/17 16:38 91/59 02/19/17 16:19 19 02/19/17 15:22 96.8 100 81/50 100 02/19/17 15:16 101 14 100 02/19/17 14:10 92 22 93/62 96 Room Air 02/19/17 13:53 93 22 Room Air 02/19/17 13:45 92 21 83/49 99 Room Air 02/19/17 13:33 98.8 96 20 88/58 98 Room Air Intake and Output 02/19/17 02/20/17 19:00 07:00 Intake Total 0 ml Balance 0 ml Intake Oral 0 ml Laboratory Tests 02/19/17 13:50: White Blood Count 11.8H, Red Blood Count 3.14L, Hemoglobin 8.9L, Hematocrit 28.1L, Mean Corpuscular Volume 90, Mean Corpuscular Hemoglobin 28.4, Mean Corpuscular Hemoglobin Concent 31.6L, Red Cell Distribution Width 15.3H, Platelet Count 117L, Mean Platelet Volume 8.5, Neutrophils (%) (Auto) 75.7H, Lymphocytes (%) (Auto) 15.7L, Monocytes (%) (Auto) 7.9, Eosinophils (%) (Auto) 0.1, Basophils (%) (Auto) 0.6, Prothrombin Time 12.4H, Prothromb Time International Ratio 1.2H, Activated Partial Thromboplast Time 30, Sodium Level 140, Potassium Level 3.7, Chloride Level 101, Carbon Dioxide Level 17L, Anion Gap 22H, Blood Urea Nitrogen 8, Creatinine 1.3H, Estimat Glomerular Filtration Rate 56.5, Glucose Level 243H, Lactic Acid Level 11.60H, Calcium Level 7.2L, Total Bilirubin 1.3H, Direct Bilirubin 0.3, Aspartate Amino Transf (AST/SGOT) 33 , Alanine Aminotransferase (ALT/SGPT) 16, Alkaline Phosphatase 92, Total Protein 5.2L, Albumin 2.9L, Globulin 2.3, Albumin/Globulin Ratio 1.2, Lipase 43 02/19/17 16:25: White Blood Count 19.4#H, Red Blood Count 2.56L, Hemoglobin 8.1L, Hematocrit 23.0L, Mean Corpuscular Volume 90, Mean Corpuscular Hemoglobin 31.6H, Mean Corpuscular Hemoglobin Concent 35.2, Red Cell Distribution Width 15.4H, Platelet Count 100L, Mean Platelet Volume 10.2H, Neutrophils (%) (Auto) , Lymphocytes (%) (Auto) , Monocytes (%) (Auto) , Eosinophils (%) (Auto) , Basophils (%) (Auto) , Differential Total Cells Counted 100, Neutrophils % ( Manual) 86H, Lymphocytes % (Manual) 5L, Monocytes % (Manual) 4, Eosinophils % ( Manual) 0, Basophils % (Manual) 0, Band Neutrophils 5, Platelet Estimate DecreasedL, Platelet Morphology Normal, Hypochromasia 1+, Anisocytosis 1+ 02/19/17 19:28: White Blood Count 12.5H, Red Blood Count 2.67L, Hemoglobin 8.6L, Hematocrit 25.8L, Mean Corpuscular Volume 97, Mean Corpuscular Hemoglobin 32.3H, Mean Corpuscular Hemoglobin Concent 33.4, Red Cell Distribution Width 13.4, Platelet Count 31#L, Mean Platelet Volume 9.9, Neutrophils (%) (Auto) , Lymphocytes (%) ( Auto) , Monocytes (%) (Auto) , Eosinophils (%) (Auto) , Basophils (%) (Auto) , Sodium Level 141, Potassium Level 4.8, Chloride Level 104, Carbon Dioxide Level 8*L, Anion Gap 29H, Blood Urea Nitrogen 9, Creatinine 1.3H, Estimat Glomerular Filtration Rate 56.5, Glucose Level 362#H, Calcium Level 6.6L, Total Bilirubin 0.8, Aspartate Amino Transf (AST/SGOT) 45H, Alanine Aminotransferase (ALT/SGPT) 28, Alkaline Phosphatase 40, Total Protein 2.7#L, Albumin 1.7L, Globulin 1.0, Albumin/Globulin Ratio 1.7, Differential Total Cells Counted 100, Neutrophils % (Manual) 75, Lymphocytes % (Manual) 15L, Monocytes % (Manual) 4, Eosinophils % ( Manual) 0, Basophils % (Manual) 0, Band Neutrophils 6, Platelet Estimate DecreasedL, Platelet Morphology Normal, Hypochromasia 1+, Anisocytosis 1+ 02/19/17 19:42: Lactic Acid Level 16.30H 02/19/17 21:30: White Blood Count 25.5#*H, Red Blood Count 2.58L, Hemoglobin 8.3L, Hematocrit 25.2L, Mean Corpuscular Volume 98, Mean Corpuscular Hemoglobin 32.4H, Mean Corpuscular Hemoglobin Concent 33.2, Red Cell Distribution Width 13.5, Platelet Count 31L, Mean Platelet Volume 10.0, Neutrophils (%) (Auto) , Lymphocytes (%) ( Auto) , Monocytes (%) (Auto) , Eosinophils (%) (Auto) , Basophils (%) (Auto) , Differential Total Cells Counted 100, Neutrophils % (Manual) 80H, Lymphocytes % (Manual) 12L, Monocytes % (Manual) 8, Eosinophils % (Manual) 0, Basophils % ( Manual) 0, Band Neutrophils 0, Platelet Estimate DecreasedL, Platelet Morphology Normal, Hypochromasia 1+, Anisocytosis 1+, Prothrombin Time 15.2H, Prothromb Time International Ratio 1.4H, Activated Partial Thromboplast Time 77H , Sodium Level 140, Potassium Level 4.7, Chloride Level 102, Carbon Dioxide Level 7*L, Anion Gap 31H, Blood Urea Nitrogen 10, Creatinine 1.5H, Estimat Glomerular Filtration Rate 47.9, Glucose Level 355H, Lactic Acid Level 19.00H, Calcium Level 6.4L, Total Bilirubin 1.4H, Direct Bilirubin 0.4H, Aspartate Amino Transf (AST/SGOT) 290H, Alanine Aminotransferase (ALT/SGPT) 190H, Alkaline Phosphatase 65, Total Protein 3.7#L, Albumin 2.2L, Globulin 1.5, Albumin/Globulin Ratio 1.4 02/19/17 23:14: Arterial Blood pH 6.909*L, Arterial Blood Partial Pressure CO2 21.7*L, Arterial Blood Partial Pressure O2 341.8H, Arterial Blood HCO3 4.2L, Arterial Blood Oxygen Saturation 98.4H, Arterial Blood Base Excess -25.7, Darryl Test Positive Height (Feet): 5 Height (Inches): 9.00 Weight (Pounds): 170 MALCOLMCAROLANNMAUREENJADON Feb 20, 2017 01:00
[2017-02-20] MEDS: Octreotide Acetate 500 MCG in Sodium Chloride 499 ML IV SCH ×2 (01:18→08:49)
[2017-02-20] MEDS ORDERED: Zosyn 3.375gm inj ONE (01:57)
[2017-02-20] MEDS: NS IVP SCH ×2 (02:06→13:05)
[2017-02-20] MEDS: ESOMEPRAZOLE SODIUM IVP SCH ×2 (02:06→13:05)
[2017-02-20 02:07] LABS: MEAN CORPUSCULAR HEMOGLOBIN 29.8 PG (27.0-31.0); MEAN CORPUSCULAR HGB CONC 32.4 G/DL (32.0-36.0); MEAN CORPUSCULAR VOLUME 92 FL (80-99); MEAN PLATELET VOLUME 13.9 FL (6.5-10.1); PLATELET COUNT 16 K/UL (150-450); RED BLOOD COUNT 2.06 M/UL (4.70-6.10); RED CELL DISTRIBUTION WIDTH 16.6 % (11.6-14.8)
[2017-02-20] MEDS: DOPamine 400mg/250ml 250 ML IV SCH ×2 (02:07→07:42)
[2017-02-20 02:15] LABS: INR 2.2 (0.9-1.1); PROTHROMBIN TIME 23.5 SEC (9.30-11.50)
[2017-02-20 02:20] LABS: ANION GAP 31 (5-15); CALCIUM 6.1 mg/dL (8.6-10.2); CHLORIDE 101 mEQ/L (98-107); CREATININE 1.7 mg/dL (0.7-1.2); GLOMERULAR FILTRATION RATE 41.5 mL/min (>60); HEMOLYSIS 6; POTASSIUM 5.3 mEQ/L (3.4-4.9); SODIUM 138 mEQ/L (135-145)
[2017-02-20 02:23] LABS: CARBON DIOXIDE < 6 mEQ/L (20-30)
--- NOTE | 2017-02-20 03:32 | Consultation ---
DATE OF CONSULTATION: 02/19/2017 GASTROENTEROLOGY CONSULTATION CHIEF COMPLAINT: I was asked to see this patient for evaluation of upper gastrointestinal bleeding. HISTORY OF PRESENT ILLNESS: The patient is a 61-year-old man, who came to the emergency room today when he was found down after a syncopal episode. He apparently had some hematemesis and he came to the hospital. By the time I saw the patient, the patient was intubated and unable to respond. According to the emergency room notes, the patient has had a history of alcohol use with a possible history of cirrhosis. He has had no bowel movements or melena, but he did have some hematemesis and a syncopal episode. In the emergency room, he had some further episodes of hematemesis. For airway protection and hypotension, he was subsequently intubated. On my arrival, the patient was hypotensive with a blood pressure systolic 38 with heart rate of approximately 120. He was in Trendelenburg position and intubated and unresponsive. There are no other further details of the patient's history available to me. PAST MEDICAL HISTORY: Unavailable except that there is a history of alcohol use and possible cirrhosis. MEDICATIONS: See chart list for details. SOCIAL HISTORY: Unavailable except the patient admits to drinking alcohol. FAMILY HISTORY: Not available. REVIEW OF SYSTEMS: Unobtainable. PHYSICAL EXAMINATION: GENERAL: The patient is a well-developed man, seen in the emergency room. He is on the ventilator in the trauma room. There is a groin central line in place and the patient was intubated. HEENT: Normocephalic and atraumatic. This patient is intubated. NECK: Supple. CHEST: Coarse breath sounds. CARDIOVASCULAR: Tachycardic heart rate. ABDOMEN: Soft without any organomegaly. There was also no evidence of spider angioma or splenomegaly. EXTREMITIES: No edema. LABORATORY AND DIAGNOSTIC DATA: Laboratory data were noted. The patient's initial hematocrit was 28.1, which went to 23 with initial IV hydration. His initial platelet count was 117,000, which went down to 100,000 today. The patient had a normal liver panel except for a mildly elevated bilirubin of 1.3. His INR is 1.2. Chemistry panel was remarkable for a bicarbonate of 17 and a glucose of 243, and minimally elevated creatinine of 4.7. ASSESSMENT: This patient presents with a significant degree of upper gastrointestinal bleeding resulting in hypotension and requiring intubation for airway support and protection. The patient will need aggressive transfusion of blood and likely fresh frozen plasma to follow. His systolic blood pressure at this point is 38 and he is not a candidate for endoscopic therapy. Once his volume resuscitates and stabilizes, then he can undergo a safe endoscopy. I am available and will be contacting the nursing staff on a regular basis to establish when the patient will be a safe candidate for endoscopy and anesthesia. For the time being, aggressive blood transfusion will be given and the patient will be followed closely. There is no family available for this patient to be consented for the endoscopy to be done based on emergency basis. Differential diagnosis for the source of bleeding will obviously include varices as well as could be also peptic ulcer disease. RECOMMENDATIONS: 1. Aggressive blood transfusion. 2. Fresh frozen plasma and platelets transfusion ahead of time before the coagulopathy worsens with massive transfusion protocol. 3. IV fluids. 4. Proton-pump inhibitor. 5. Sandostatin drip. Thank you for asking me to participate in the care of this patient. Romario Patel M.D. DR: TAMARA JOB#: [id number] CC: PAPA
[2017-02-20 05:51] LABS: BAND NEUTROPHILS % (MANUAL) 41 % (0-8); BASOPHILS % (MANUAL) 0 % (0-2); EOSINOPHILS % (MANUAL) 0 % (0-3); LYMPHOCYTES % (MANUAL) 12 % (20-45); NEUTROPHILS % (MANUAL) 44 % (45-75); PLATELET ESTIMATE DECREASED; TOTAL CELLS COUNTED 100
[2017-02-20 05:55] LABS: ANISOCYTOSIS 2+; OVALOCYTES 1+; PLATELET MORPHOLOGY NORMAL; POIKILOCYTOSIS 2+
[2017-02-20 06:28] LABS: MEAN CORPUSCULAR HEMOGLOBIN 29.3 PG (27.0-31.0); MEAN CORPUSCULAR HGB CONC 32.1 G/DL (32.0-36.0); MEAN CORPUSCULAR VOLUME 91 FL (80-99); MEAN PLATELET VOLUME 6.2 FL (6.5-10.1); PLATELET COUNT 68 K/UL (150-450); RED BLOOD COUNT 2.12 M/UL (4.70-6.10)
[2017-02-20 06:34] LABS: WHITE BLOOD COUNT 24.3 K/UL (4.8-10.8)
[2017-02-20 06:43] LABS: ALBUMIN/GLOBULIN RATIO 1.6 (1.0-2.7); CALCIUM 6.1 mg/dL (8.6-10.2); GLOMERULAR FILTRATION RATE 34.4 mL/min (>60); POTASSIUM 5.1 mEQ/L (3.4-4.9); TOTAL PROTEIN 2.4 g/dL (6.6-8.7)
[2017-02-20 07:16] LABS: BILIRUBIN,DIRECT 0.6 mg/dL (0.1-0.3)
[2017-02-20] MEDS: D5NS 1,000 ML IV SCH ×2 (07:46→07:47)
[2017-02-20 08:37] LABS: INR 2.5 (0.9-1.1); PROTHROMBIN TIME 26.5 SEC (9.30-11.50)
[2017-02-20 08:38] LABS: PARTIAL THROMBOPLASTIN TIME > 150 SEC (23-33)
--- NOTE | 2017-02-20 08:47 | Procedure Note ---
DATE OF PROCEDURE: 02/19/2017 PROCEDURE: Upper gastrointestinal endoscopy with endoscopic clipping and band ligation. SURGEON: Romario Patel M.D. ANESTHESIOLOGIST: Dieudonne Isaac M.D. PRE-ENDOSCOPIC DIAGNOSIS: Upper gastrointestinal bleeding. POST-ENDOSCOPIC DIAGNOSIS: Bleeding from apparent previously treated varices, status post endoscopic clipping and banding as described above. DESCRIPTION OF PROCEDURE: The procedure was done on an emergency basis since the patient was intubated and there was no family available to give consent. Likewise, consent for transfusion could not be obtained given the same emergency circumstances and lack of durable power of claim attorney. The patient was intubated with endoscope, which was advanced to the esophagus. At this time, significant amounts of blood and blood clots were seen filling the entire esophagus. The blood and blood clots were meticulously suctioned out. The endoscope was passed to the stomach, which was also full of fresh blood clots and then subsequently to the duodenum. Duodenum was washed clear and did not seem to be a source of bleeding. The stomach was examined again and did not seem to be a source of bleeding. The esophagus then was suctioned extensively and then finally two pumping blood vessels were seen shooting two streams of blood into the esophageal lumen. The vessels were clipped each with an Endoclip device. Subsequent to this, the wall of the esophagus was washed and examined and it appeared to have few varices, which were scarred down. The appearance was similar to variceal disease and has already been treated endoscopically. Five bands were placed in the varices with acceptable hemostatic control. The endoscope was then removed. The patient was left to recover in critical care unit. ASSESSMENT: This patient has had massive upper gastrointestinal bleeding from what appears to be partially previously treated esophageal varices. The patient's prognosis remains extremely poor with high likelihood of bleeding and shock, and a significant degree of mortality. The patient will have to be kept on his proton pump drip as well as Sandostatin drip. No nasogastric tube to be placed. Serial CBC and coagulation panel should be followed and replaced as necessary. I would focus meticulously on correcting the coagulopathy as much as possible, since repeat endoscopy will not likely alter management. RECOMMENDATIONS: Per above discussion and per orders written in the chart. Romario Patel M.D. DR: SHERRON JOB#: [id number] CC: PAPA
[2017-02-20] MEDS ORDERED: Esomeprazole sodium 40mg vial IV SCH (09:00)
[2017-02-20 09:20] LABS: ABG ALLEN TEST POSITIVE; ABG BASE EXCESS -5.6
[2017-02-20 09:43] LABS: BAND NEUTROPHILS % (MANUAL) 11 % (0-8); HYPOCHROMASIA 1+; LYMPHOCYTES % (MANUAL) 5 % (20-45); NEUTROPHILS % (MANUAL) 83 % (45-75); PLATELET MORPHOLOGY NORMAL; TOTAL CELLS COUNTED 100
[2017-02-20 09:44] LABS: BASOPHILS % (MANUAL) 0 % (0-2); EOSINOPHILS % (MANUAL) 0 % (0-3); PLATELET ESTIMATE DECREASED
--- NOTE | 2017-02-20 09:45 | Pulmonolgy Critical Care Note ---
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 - Objective Last 24 Hour Vital Signs Date Time Temp Pulse Resp B/P Pulse Ox O2 Delivery O2 Flow Rate FiO2 02/20/17 09:19 80/35 02/20/17 09:00 97 29 85/57 76 Mechanical Ventilator 100 02/20/17 08:55 96 29 89/42 74 Mechanical Ventilator 100 02/20/17 08:30 97 29 92/31 76 Mechanical Ventilator 100 02/20/17 08:15 96 30 79/45 79 Mechanical Ventilator 100 02/20/17 08:00 91.4 95 30 78/45 71 Mechanical Ventilator 100 02/20/17 08:00 100 02/20/17 07:45 93 26 84/68 61 Mechanical Ventilator 100 02/20/17 07:42 115/69 02/20/17 07:30 93 26 115/69 97 Mechanical Ventilator 100 02/20/17 07:10 92 31 100 02/20/17 07:00 92 26 142/120 99 Mechanical Ventilator 100 02/20/17 06:30 92 26 129/95 99 Mechanical Ventilator 100 02/20/17 06:07 70/50 02/20/17 06:00 93 26 123/107 100 Mechanical Ventilator 100 02/20/17 05:30 93 26 77/31 100 Mechanical Ventilator 100 02/20/17 05:13 91 31 100 02/20/17 05:00 92 27 83/38 100 Mechanical Ventilator 100 02/20/17 04:30 96.0 92 26 74/46 100 Mechanical Ventilator 100 02/20/17 04:17 100 02/20/17 04:16 90 02/20/17 04:00 92 25 68/23 100 Mechanical Ventilator 100 02/20/17 03:30 91 25 79/37 100 Mechanical Ventilator 100 02/20/17 03:27 79/37 02/20/17 03:10 90 29 100 02/20/17 03:00 90 24 77/47 100 Mechanical Ventilator 100 02/20/17 02:30 92 25 94/40 100 Mechanical Ventilator 100 02/20/17 02:07 87/21 02/20/17 02:00 90 22 87/21 100 Mechanical Ventilator 100 02/20/17 01:30 91 27 76/27 100 Mechanical Ventilator 100 02/20/17 01:19 81/26 02/20/17 01:18 100 24 100 02/20/17 01:00 90 27 86/32 98 Mechanical Ventilator 100 02/20/17 00:52 74 20 100 02/20/17 00:50 89 20 100 02/20/17 00:30 88 27 94/31 95 Mechanical Ventilator 100 02/20/17 00:15 91 26 54/27 97 Mechanical Ventilator 100 02/20/17 00:00 100 02/20/17 00:00 96.0 90 26 46/25 100 Mechanical Ventilator 100 02/20/17 00:00 100 02/19/17 23:45 88 26 73/31 100 Mechanical Ventilator 100 02/19/17 23:30 91 25 66/24 100 Mechanical Ventilator 100 02/19/17 23:15 92 25 49/39 100 Mechanical Ventilator 100 02/19/17 23:05 105 25 100 02/19/17 23:00 20 02/19/17 23:00 95 25 60/28 100 Mechanical Ventilator 100 02/19/17 22:45 90 26 47/25 100 Mechanical Ventilator 100 02/19/17 22:30 94 27 51/21 100 Mechanical Ventilator 100 02/19/17 22:15 100 24 58/23 100 Mechanical Ventilator 100 02/19/17 22:00 88 27 57/18 100 Mechanical Ventilator 100 02/19/17 21:45 90 26 105/51 100 Mechanical Ventilator 100 02/19/17 21:34 90/47 02/19/17 21:30 85 25 90/47 100 Mechanical Ventilator 100 02/19/17 21:17 101 24 100 02/19/17 21:15 89 25 95/56 100 Mechanical Ventilator 100 02/19/17 21:00 90 27 95/39 100 Mechanical Ventilator 100 02/19/17 20:45 100 20 100/36 100 Mechanical Ventilator 100 02/19/17 20:39 100 02/19/17 20:30 102 24 105/39 100 Mechanical Ventilator 100 02/19/17 20:15 94.1 101 25 82/41 100 Mechanical Ventilator 100 02/19/17 20:15 101 02/19/17 20:15 94.1 96 29 97/39 100 Mechanical Ventilator 100 02/19/17 19:55 96 29 97/39 100 02/19/17 19:35 94.6 96 85/28 Mechanical Ventilator 100 02/19/17 19:30 96 30 85/28 02/19/17 19:20 114 24 100 02/19/17 19:03 98.8 102 29 69/27 100 Mechanical Ventilator 100 02/19/17 19:00 103 29 70/18 02/19/17 18:51 94.6 106 32 66/30 7 Room Air 100 02/19/17 18:37 171/111 02/19/17 18:37 31 02/19/17 18:30 109 27 02/19/17 18:29 95.0 110 56/43 Mechanical Ventilator 100 02/19/17 18:25 95.0 112 56/43 100 02/19/17 18:05 95.2 115 48/32 02/19/17 17:38 95.2 126 50/33 100 02/19/17 17:30 125 25 48/29 02/19/17 17:16 47/29 02/19/17 17:05 114 20 100 02/19/17 17:00 104 20 67/35 100 02/19/17 16:51 100 02/19/17 16:48 90/46 02/19/17 16:44 74/40 02/19/17 16:38 91/59 02/19/17 16:30 93 20 95/57 02/19/17 16:19 19 02/19/17 16:00 96.8 99 100/50 100 02/19/17 16:00 98 20 115/60 02/19/17 15:30 99 16 89/48 02/19/17 15:22 96.8 100 81/50 100 02/19/17 15:16 101 14 100 02/19/17 15:00 107 20 68/45 98 02/19/17 14:10 92 22 93/62 96 Room Air 02/19/17 13:53 93 22 Room Air 02/19/17 13:45 92 21 83/49 99 Room Air 02/19/17 13:33 98.8 96 20 88/58 98 Room Air Status: awake Condition: critical HEENT: atraumatic Neck: full ROM Heart: HR/BP stable, HR/BP unstable Abdomen: soft, non-tender, active bowel sounds Extremities: no C/C/E, edema Accucheck: 209 Critical Care - Subjective ROS Limited/Unobtainable: No ICU Day: 2 Intubation Day: 2 Condition: critical EKG Rhythm: Sinus Rhythm FI02: 100 Vent Support Breath Rate: 20 Vent Support Mode: AC Vent Tidal Volume: 650 Sputum Amount: Moderate PIP: 26 Fluids: d5 w with 3 amp of bicarb I&O: Intake and Output 02/19/17 02/20/17 19:00 07:00 Intake Total 0 ml 4047.665 ml Output Total 4290 ml Balance 0 ml -242.335 ml Intake Oral 0 ml IV Total 1851.665 ml Blood Product 2196 ml Output Urine Total 290 ml Estimated Blood Loss 4000 ml CXR: ET in good position ET-Tube: 7.5 ET Position: 23 Labs: Laboratory Tests Test 02/19/17 13:50 02/19/17 16:25 02/19/17 19:28 02/19/17 19:42 White Blood Count 11.8 K/UL (4.8-10.8) H 19.4 K/UL (4.8-10.8) #H 12.5 K/UL (4.8-10.8) H Red Blood Count 3.14 M/UL (4.70-6.10) L 2.56 M/UL (4.70-6.10) L 2.67 M/UL (4.70-6.10) L Hemoglobin 8.9 G/DL (14.2-18.0) L 8.1 G/DL (14.2-18.0) L 8.6 G/DL (14.2-18.0) L Hematocrit 28.1 % (42.0-52.0) L 23.0 % (42.0-52.0) L 25.8 % (42.0-52.0) L Mean Corpuscular Volume 90 FL (80-99) 90 FL (80-99) 97 FL (80-99) Mean Corpuscular Hemoglobin 28.4 PG (27.0-31.0) 31.6 PG (27.0-31.0) H 32.3 PG (27.0-31.0) H Mean Corpuscular Hemoglobin Concent 31.6 G/DL (32.0-36.0) L 35.2 G/DL (32.0-36.0) 33.4 G/DL (32.0-36.0) Red Cell Distribution Width 15.3 % (11.6-14.8) H 15.4 % (11.6-14.8) H 13.4 % (11.6-14.8) Platelet Count 117 K/UL (150-450) L 100 K/UL (150-450) L 31 K/UL (150-450) #L Mean Platelet Volume 8.5 FL (6.5-10.1) 10.2 FL (6.5-10.1) H 9.9 FL (6.5-10.1) Neutrophils (%) (Auto) 75.7 % (45.0-75.0) H % (45.0-75.0) % (45.0-75.0) Lymphocytes (%) (Auto) 15.7 % (20.0-45.0) L % (20.0-45.0) % (20.0-45.0) Monocytes (%) (Auto) 7.9 % (1.0-10.0) % (1.0-10.0) % (1.0-10.0) Eosinophils (%) (Auto) 0.1 % (0.0-3.0) % (0.0-3.0) % (0.0-3.0) Basophils (%) (Auto) 0.6 % (0.0-2.0) % (0.0-2.0) % (0.0-2.0) Prothrombin Time 12.4 SEC (9.30-11.50) H Prothromb Time International Ratio 1.2 (0.9-1.1) H Activated Partial Thromboplast Time 30 SEC (23-33) Sodium Level 140 mEQ/L (135-145) 141 mEQ/L (135-145) Potassium Level 3.7 mEQ/L (3.4-4.9) 4.8 mEQ/L (3.4-4.9) Chloride Level 101 mEQ/L (98-107) 104 mEQ/L (98-107) Carbon Dioxide Level 17 mEQ/L (20-30) L 8 mEQ/L (20-30) *L Anion Gap 22 (5-15) H 29 (5-15) H Blood Urea Nitrogen 8 mg/dL (7-23) 9 mg/dL (7-23) Creatinine 1.3 mg/dL (0.7-1.2) H 1.3 mg/dL (0.7-1.2) H Estimat Glomerular Filtration Rate 56.5 mL/min (>60) 56.5 mL/min (>60) Glucose Level 243 mg/dL (74-106) H 362 mg/dL (74-106) #H Lactic Acid Level 11.60 mmol/L (0.66-2.22) H 16.30 mmol/L (0.66-2.22) H Calcium Level 7.2 mg/dL (8.6-10.2) L 6.6 mg/dL (8.6-10.2) L Total Bilirubin 1.3 mg/dL (0.0-1.2) H 0.8 mg/dL (0.0-1.2) Direct Bilirubin 0.3 mg/dL (0.1-0.3) Aspartate Amino Transf (AST/SGOT) 33 U/L (5-40) 45 U/L (5-40) H Alanine Aminotransferase (ALT/SGPT) 16 U/L (3-41) 28 U/L (3-41) Alkaline Phosphatase 92 U/L (40-129) 40 U/L (40-129) Total Protein 5.2 g/dL (6.6-8.7) L 2.7 g/dL (6.6-8.7) #L Albumin 2.9 g/dL (3.5-5.2) L 1.7 g/dL (3.5-5.2) L Globulin 2.3 g/dL 1.0 g/dL Albumin/Globulin Ratio 1.2 (1.0-2.7) 1.7 (1.0-2.7) Lipase 43 U/L (< 60) Differential Total Cells Counted 100 100 Neutrophils % (Manual) 86 % (45-75) H 75 % (45-75) Lymphocytes % (Manual) 5 % (20-45) L 15 % (20-45) L Monocytes % (Manual) 4 % (1-10) 4 % (1-10) Eosinophils % (Manual) 0 % (0-3) 0 % (0-3) Basophils % (Manual) 0 % (0-2) 0 % (0-2) Band Neutrophils 5 % (0-8) 6 % (0-8) Platelet Estimate Decreased L Decreased L Platelet Morphology Normal Normal Hypochromasia 1+ 1+ Anisocytosis 1+ 1+ Test 02/19/17 21:30 02/19/17 23:14 02/20/17 01:45 02/20/17 06:00 White Blood Count 25.5 K/UL (4.8-10.8) #*H 28.0 K/UL (4.8-10.8) *H 24.3 K/UL (4.8-10.8) *H Red Blood Count 2.58 M/UL (4.70-6.10) L 2.06 M/UL (4.70-6.10) L 2.12 M/UL (4.70-6.10) L Hemoglobin 8.3 G/DL (14.2-18.0) L 6.1 G/DL (14.2-18.0) *L 6.2 G/DL (14.2-18.0) *L Hematocrit 25.2 % (42.0-52.0) L 18.9 % (42.0-52.0) L 19.4 % (42.0-52.0) L Mean Corpuscular Volume 98 FL (80-99) 92 FL (80-99) 91 FL (80-99) Mean Corpuscular Hemoglobin 32.4 PG (27.0-31.0) H 29.8 PG (27.0-31.0) 29.3 PG (27.0-31.0) Mean Corpuscular Hemoglobin Concent 33.2 G/DL (32.0-36.0) 32.4 G/DL (32.0-36.0) 32.1 G/DL (32.0-36.0) Red Cell Distribution Width 13.5 % (11.6-14.8) 16.6 % (11.6-14.8) H 15.0 % (11.6-14.8) H Platelet Count 31 K/UL (150-450) L 16 K/UL (150-450) L 68 K/UL (150-450) #L Mean Platelet Volume 10.0 FL (6.5-10.1) 13.9 FL (6.5-10.1) H 6.2 FL (6.5-10.1) L Neutrophils (%) (Auto) % (45.0-75.0) % (45.0-75.0) % (45.0-75.0) Lymphocytes (%) (Auto) % (20.0-45.0) % (20.0-45.0) % (20.0-45.0) Monocytes (%) (Auto) % (1.0-10.0) % (1.0-10.0) % (1.0-10.0) Eosinophils (%) (Auto) % (0.0-3.0) % (0.0-3.0) % (0.0-3.0) Basophils (%) (Auto) % (0.0-2.0) % (0.0-2.0) % (0.0-2.0) Differential Total Cells Counted 100 100 Neutrophils % (Manual) 80 % (45-75) H 44 % (45-75) L Pending Lymphocytes % (Manual) 12 % (20-45) L 12 % (20-45) L Pending Monocytes % (Manual) 8 % (1-10) 3 % (1-10) Eosinophils % (Manual) 0 % (0-3) 0 % (0-3) Basophils % (Manual) 0 % (0-2) 0 % (0-2) Band Neutrophils 0 % (0-8) 41 % (0-8) H Platelet Estimate Decreased L Decreased L Pending Platelet Morphology Normal Normal Pending Hypochromasia 1+ Anisocytosis 1+ 2+ Prothrombin Time 15.2 SEC (9.30-11.50) H 23.5 SEC (9.30-11.50) H 26.5 SEC (9.30-11.50) H Prothromb Time International Ratio 1.4 (0.9-1.1) H 2.2 (0.9-1.1) H 2.5 (0.9-1.1) H Activated Partial Thromboplast Time 77 SEC (23-33) H > 150 SEC (23-33) *H Sodium Level 140 mEQ/L (135-145) 138 mEQ/L (135-145) 137 mEQ/L (135-145) Potassium Level 4.7 mEQ/L (3.4-4.9) 5.3 mEQ/L (3.4-4.9) H 5.1 mEQ/L (3.4-4.9) H Chloride Level 102 mEQ/L (98-107) 101 mEQ/L (98-107) 98 mEQ/L (98-107) Carbon Dioxide Level 7 mEQ/L (20-30) *L < 6 mEQ/L (20-30) *L 8 mEQ/L (20-30) *L Anion Gap 31 (5-15) H 31 (5-15) H 31 (5-15) H Blood Urea Nitrogen 10 mg/dL (7-23) 10 mg/dL (7-23) 10 mg/dL (7-23) Creatinine 1.5 mg/dL (0.7-1.2) H 1.7 mg/dL (0.7-1.2) H 2.0 mg/dL (0.7-1.2) H Estimat Glomerular Filtration Rate 47.9 mL/min (>60) 41.5 mL/min (>60) 34.4 mL/min (>60) Glucose Level 355 mg/dL (74-106) H 362 mg/dL (74-106) H 386 mg/dL (74-106) H Lactic Acid Level 19.00 mmol/L (0.66-2.22) H Calcium Level 6.4 mg/dL (8.6-10.2) L 6.1 mg/dL (8.6-10.2) L 6.1 mg/dL (8.6-10.2) L Total Bilirubin 1.4 mg/dL (0.0-1.2) H 1.2 mg/dL (0.0-1.2) Direct Bilirubin 0.4 mg/dL (0.1-0.3) H 0.6 mg/dL (0.1-0.3) H Aspartate Amino Transf (AST/SGOT) 290 U/L (5-40) H 2024 U/L (5-40) H Alanine Aminotransferase (ALT/SGPT) 190 U/L (3-41) H 1346 U/L (3-41) H Alkaline Phosphatase 65 U/L (40-129) 42 U/L (40-129) Total Protein 3.7 g/dL (6.6-8.7) #L 2.4 g/dL (6.6-8.7) #L Albumin 2.2 g/dL (3.5-5.2) L 1.5 g/dL (3.5-5.2) L Globulin 1.5 g/dL 0.9 g/dL Albumin/Globulin Ratio 1.4 (1.0-2.7) 1.6 (1.0-2.7) Arterial Blood pH 6.909 (7.350-7.450) Arterial Blood Partial Pressure CO2 21.7 mmHg (35.0-45.0) *L Arterial Blood Partial Pressure O2 341.8 mmHg (75.0-100.0) H Arterial Blood HCO3 4.2 mmol/L (22.0-26.0) L Arterial Blood Oxygen Saturation 98.4 % (92.0-98.0) H Arterial Blood Base Excess -25.7 Darryl Test Positive Poikilocytosis 2+ Ovalocytes 1+ Amylase Level 565 U/L (10-110) *H Lipase 75 U/L (< 60) H Test 02/20/17 09:12 Arterial Blood pH 7.179 (7.350-7.450) Arterial Blood Partial Pressure CO2 60.0 mmHg (35.0-45.0) *H Arterial Blood Partial Pressure O2 168.2 mmHg (75.0-100.0) H Arterial Blood HCO3 21.8 mmol/L (22.0-26.0) L Arterial Blood Oxygen Saturation 97.6 % (92.0-98.0) Arterial Blood Base Excess -5.6 Darryl Test Positive ROSALIE MIDDLETON Feb 20, 2017 09:45
[2017-02-20] MEDS ORDERED: Piperacillin/Tazobactam 3.375 GM in D5W 110 ML IVPB SCH (10:00)
[2017-02-20] MEDS ORDERED: Tubing Blood Filter IV ONE ×4 (10:44→15:02)
[2017-02-20] MEDS ORDERED: Tubing IV Secondary IV ONE ×2 (10:44→15:02)
[2017-02-20] MEDS ORDERED: NS 275ml ONE ×3 (10:44→15:02)
--- NOTE | 2017-02-20 11:24 | General Progress Note ---
Assessment/Plan Assessment/Plan Assessment - Severe UGIB - Esophageal varicies - EtOH abuse - shocked liver - Renal failure - Resp failure - intractable anemia - lactic acidosis - Very poor Px Recommendations - supportive care - transfuse blood products as needed - PPI - Sandostatin - IVF - no role for repeat endoscopy Subjective Allergies: Coded Allergies: No Known Allergies (Unverified , 02/19/17) Subjective Above noted d/w RN multiple times overnight doing poorly now showing e/o shocked liver and renal failure coagulopathy worse still hypotensive and on pressors Objective Last 24 Hour Vital Signs Date Time Temp Pulse Resp B/P Pulse Ox O2 Delivery O2 Flow Rate FiO2 02/20/17 11:08 110 32 100 02/20/17 10:45 108 28 90/59 68 Mechanical Ventilator 100 02/20/17 10:30 107 29 62/47 69 Mechanical Ventilator 100 02/20/17 10:15 105 30 119/100 72 Mechanical Ventilator 100 02/20/17 10:04 119/100 02/20/17 10:04 119/100 02/20/17 10:00 103 32 80/34 71 Mechanical Ventilator 100 02/20/17 09:45 101 30 115/101 74 Mechanical Ventilator 100 02/20/17 09:30 99 30 80/34 75 Mechanical Ventilator 100 02/20/17 09:19 80/35 02/20/17 09:19 80/35 02/20/17 09:15 97.4 95 31 69/43 75 Mechanical Ventilator 100 02/20/17 09:10 99 29 100 02/20/17 09:00 97 29 85/57 76 Mechanical Ventilator 100 02/20/17 08:55 96 29 89/42 74 Mechanical Ventilator 100 02/20/17 08:30 97 29 92/31 76 Mechanical Ventilator 100 02/20/17 08:15 96 30 79/45 79 Mechanical Ventilator 100 02/20/17 08:00 93 02/20/17 08:00 79/45 02/20/17 08:00 79/45 02/20/17 08:00 91.4 95 30 78/45 71 Mechanical Ventilator 100 02/20/17 08:00 100 02/20/17 07:45 93 26 84/68 61 Mechanical Ventilator 100 02/20/17 07:42 115/69 02/20/17 07:30 93 26 115/69 97 Mechanical Ventilator 100 02/20/17 07:10 92 31 100 02/20/17 07:00 92 26 142/120 99 Mechanical Ventilator 100 02/20/17 06:30 92 26 129/95 99 Mechanical Ventilator 100 02/20/17 06:07 70/50 02/20/17 06:00 93 26 123/107 100 Mechanical Ventilator 100 02/20/17 05:30 93 26 77/31 100 Mechanical Ventilator 100 02/20/17 05:13 91 31 100 02/20/17 05:00 92 27 83/38 100 Mechanical Ventilator 100 02/20/17 04:30 96.0 92 26 74/46 100 Mechanical Ventilator 100 02/20/17 04:17 100 02/20/17 04:16 90 02/20/17 04:00 92 25 68/23 100 Mechanical Ventilator 100 02/20/17 03:30 91 25 79/37 100 Mechanical Ventilator 100 02/20/17 03:27 79/37 02/20/17 03:10 90 29 100 02/20/17 03:00 90 24 77/47 100 Mechanical Ventilator 100 02/20/17 02:30 92 25 94/40 100 Mechanical Ventilator 100 02/20/17 02:07 87/21 02/20/17 02:00 90 22 87/21 100 Mechanical Ventilator 100 02/20/17 01:30 91 27 76/27 100 Mechanical Ventilator 100 02/20/17 01:19 81/26 02/20/17 01:18 100 24 100 02/20/17 01:00 90 27 86/32 98 Mechanical Ventilator 100 02/20/17 00:52 74 20 100 02/20/17 00:50 89 20 100 02/20/17 00:30 88 27 94/31 95 Mechanical Ventilator 100 02/20/17 00:15 91 26 54/27 97 Mechanical Ventilator 100 02/20/17 00:00 100 02/20/17 00:00 96.0 90 26 46/25 100 Mechanical Ventilator 100 02/20/17 00:00 100 02/19/17 23:45 88 26 73/31 100 Mechanical Ventilator 100 02/19/17 23:30 91 25 66/24 100 Mechanical Ventilator 100 02/19/17 23:15 92 25 49/39 100 Mechanical Ventilator 100 02/19/17 23:05 105 25 100 02/19/17 23:00 20 02/19/17 23:00 95 25 60/28 100 Mechanical Ventilator 100 02/19/17 22:45 90 26 47/25 100 Mechanical Ventilator 100 02/19/17 22:30 94 27 51/21 100 Mechanical Ventilator 100 02/19/17 22:15 100 24 58/23 100 Mechanical Ventilator 100 02/19/17 22:00 88 27 57/18 100 Mechanical Ventilator 100 02/19/17 21:45 90 26 105/51 100 Mechanical Ventilator 100 02/19/17 21:34 90/47 02/19/17 21:30 85 25 90/47 100 Mechanical Ventilator 100 02/19/17 21:17 101 24 100 02/19/17 21:15 89 25 95/56 100 Mechanical Ventilator 100 02/19/17 21:00 90 27 95/39 100 Mechanical Ventilator 100 02/19/17 20:45 100 20 100/36 100 Mechanical Ventilator 100 02/19/17 20:39 100 02/19/17 20:30 102 24 105/39 100 Mechanical Ventilator 100 02/19/17 20:15 94.1 101 25 82/41 100 Mechanical Ventilator 100 02/19/17 20:15 101 02/19/17 20:15 94.1 96 29 97/39 100 Mechanical Ventilator 100 02/19/17 19:55 96 29 97/39 100 02/19/17 19:35 94.6 96 85/28 Mechanical Ventilator 100 02/19/17 19:30 96 30 85/28 02/19/17 19:20 114 24 100 02/19/17 19:03 98.8 102 29 69/27 100 Mechanical Ventilator 100 02/19/17 19:00 103 29 70/18 02/19/17 18:51 94.6 106 32 66/30 7 Room Air 100 02/19/17 18:37 171/111 02/19/17 18:37 31 02/19/17 18:30 109 27 02/19/17 18:29 95.0 110 56/43 Mechanical Ventilator 100 02/19/17 18:25 95.0 112 56/43 100 02/19/17 18:05 95.2 115 48/32 02/19/17 17:38 95.2 126 50/33 100 02/19/17 17:30 125 25 48/29 02/19/17 17:16 47/29 02/19/17 17:05 114 20 100 02/19/17 17:00 104 20 67/35 100 02/19/17 16:51 100 02/19/17 16:48 90/46 02/19/17 16:44 74/40 02/19/17 16:38 91/59 02/19/17 16:30 93 20 95/57 02/19/17 16:19 19 02/19/17 16:00 96.8 99 100/50 100 02/19/17 16:00 98 20 115/60 02/19/17 15:30 99 16 89/48 02/19/17 15:22 96.8 100 81/50 100 02/19/17 15:16 101 14 100 02/19/17 15:00 107 20 68/45 98 02/19/17 14:10 92 22 93/62 96 Room Air 02/19/17 13:53 93 22 Room Air 02/19/17 13:45 92 21 83/49 99 Room Air 02/19/17 13:33 98.8 96 20 88/58 98 Room Air Intake and Output 02/19/17 02/20/17 19:00 07:00 Intake Total 0 ml 4047.665 ml Output Total 4290 ml Balance 0 ml -242.335 ml Intake Oral 0 ml IV Total 1851.665 ml Blood Product 2196 ml Output Urine Total 290 ml Estimated Blood Loss 4000 ml Laboratory Tests 02/19/17 13:50: White Blood Count 11.8H, Red Blood Count 3.14L, Hemoglobin 8.9L, Hematocrit 28.1L, Mean Corpuscular Volume 90, Mean Corpuscular Hemoglobin 28.4, Mean Corpuscular Hemoglobin Concent 31.6L, Red Cell Distribution Width 15.3H, Platelet Count 117L, Mean Platelet Volume 8.5, Neutrophils (%) (Auto) 75.7H, Lymphocytes (%) (Auto) 15.7L, Monocytes (%) (Auto) 7.9, Eosinophils (%) (Auto) 0.1, Basophils (%) (Auto) 0.6, Prothrombin Time 12.4H, Prothromb Time International Ratio 1.2H, Activated Partial Thromboplast Time 30, Sodium Level 140, Potassium Level 3.7, Chloride Level 101, Carbon Dioxide Level 17L, Anion Gap 22H, Blood Urea Nitrogen 8, Creatinine 1.3H, Estimat Glomerular Filtration Rate 56.5, Glucose Level 243H, Lactic Acid Level 11.60H, Calcium Level 7.2L, Total Bilirubin 1.3H, Direct Bilirubin 0.3, Aspartate Amino Transf (AST/SGOT) 33 , Alanine Aminotransferase (ALT/SGPT) 16, Alkaline Phosphatase 92, Total Protein 5.2L, Albumin 2.9L, Globulin 2.3, Albumin/Globulin Ratio 1.2, Lipase 43 02/19/17 16:25: White Blood Count 19.4#H, Red Blood Count 2.56L, Hemoglobin 8.1L, Hematocrit 23.0L, Mean Corpuscular Volume 90, Mean Corpuscular Hemoglobin 31.6H, Mean Corpuscular Hemoglobin Concent 35.2, Red Cell Distribution Width 15.4H, Platelet Count 100L, Mean Platelet Volume 10.2H, Neutrophils (%) (Auto) , Lymphocytes (%) (Auto) , Monocytes (%) (Auto) , Eosinophils (%) (Auto) , Basophils (%) (Auto) , Differential Total Cells Counted 100, Neutrophils % ( Manual) 86H, Lymphocytes % (Manual) 5L, Monocytes % (Manual) 4, Eosinophils % ( Manual) 0, Basophils % (Manual) 0, Band Neutrophils 5, Platelet Estimate DecreasedL, Platelet Morphology Normal, Hypochromasia 1+, Anisocytosis 1+ 02/19/17 19:28: White Blood Count 12.5H, Red Blood Count 2.67L, Hemoglobin 8.6L, Hematocrit 25.8L, Mean Corpuscular Volume 97, Mean Corpuscular Hemoglobin 32.3H, Mean Corpuscular Hemoglobin Concent 33.4, Red Cell Distribution Width 13.4, Platelet Count 31#L, Mean Platelet Volume 9.9, Neutrophils (%) (Auto) , Lymphocytes (%) ( Auto) , Monocytes (%) (Auto) , Eosinophils (%) (Auto) , Basophils (%) (Auto) , Sodium Level 141, Potassium Level 4.8, Chloride Level 104, Carbon Dioxide Level 8*L, Anion Gap 29H, Blood Urea Nitrogen 9, Creatinine 1.3H, Estimat Glomerular Filtration Rate 56.5, Glucose Level 362#H, Calcium Level 6.6L, Total Bilirubin 0.8, Aspartate Amino Transf (AST/SGOT) 45H, Alanine Aminotransferase (ALT/SGPT) 28, Alkaline Phosphatase 40, Total Protein 2.7#L, Albumin 1.7L, Globulin 1.0, Albumin/Globulin Ratio 1.7, Differential Total Cells Counted 100, Neutrophils % (Manual) 75, Lymphocytes % (Manual) 15L, Monocytes % (Manual) 4, Eosinophils % ( Manual) 0, Basophils % (Manual) 0, Band Neutrophils 6, Platelet Estimate DecreasedL, Platelet Morphology Normal, Hypochromasia 1+, Anisocytosis 1+ 02/19/17 19:42: Lactic Acid Level 16.30H 02/19/17 21:30: White Blood Count 25.5#*H, Red Blood Count 2.58L, Hemoglobin 8.3L, Hematocrit 25.2L, Mean Corpuscular Volume 98, Mean Corpuscular Hemoglobin 32.4H, Mean Corpuscular Hemoglobin Concent 33.2, Red Cell Distribution Width 13.5, Platelet Count 31L, Mean Platelet Volume 10.0, Neutrophils (%) (Auto) , Lymphocytes (%) ( Auto) , Monocytes (%) (Auto) , Eosinophils (%) (Auto) , Basophils (%) (Auto) , Differential Total Cells Counted 100, Neutrophils % (Manual) 80H, Lymphocytes % (Manual) 12L, Monocytes % (Manual) 8, Eosinophils % (Manual) 0, Basophils % ( Manual) 0, Band Neutrophils 0, Platelet Estimate DecreasedL, Platelet Morphology Normal, Hypochromasia 1+, Anisocytosis 1+, Prothrombin Time 15.2H, Prothromb Time International Ratio 1.4H, Activated Partial Thromboplast Time 77H , Sodium Level 140, Potassium Level 4.7, Chloride Level 102, Carbon Dioxide Level 7*L, Anion Gap 31H, Blood Urea Nitrogen 10, Creatinine 1.5H, Estimat Glomerular Filtration Rate 47.9, Glucose Level 355H, Lactic Acid Level 19.00H, Calcium Level 6.4L, Total Bilirubin 1.4H, Direct Bilirubin 0.4H, Aspartate Amino Transf (AST/SGOT) 290H, Alanine Aminotransferase (ALT/SGPT) 190H, Alkaline Phosphatase 65, Total Protein 3.7#L, Albumin 2.2L, Globulin 1.5, Albumin/Globulin Ratio 1.4 02/19/17 23:14: Arterial Blood pH 6.909*L, Arterial Blood Partial Pressure CO2 21.7*L, Arterial Blood Partial Pressure O2 341.8H, Arterial Blood HCO3 4.2L, Arterial Blood Oxygen Saturation 98.4H, Arterial Blood Base Excess -25.7, Darryl Test Positive 02/20/17 01:45: White Blood Count 28.0*H, Red Blood Count 2.06L, Hemoglobin 6.1*L, Hematocrit 18.9L, Mean Corpuscular Volume 92, Mean Corpuscular Hemoglobin 29.8, Mean Corpuscular Hemoglobin Concent 32.4, Red Cell Distribution Width 16.6H, Platelet Count 16L, Mean Platelet Volume 13.9H, Neutrophils (%) (Auto) , Lymphocytes (%) (Auto) , Monocytes (%) (Auto) , Eosinophils (%) (Auto) , Basophils (%) (Auto) , Differential Total Cells Counted 100, Neutrophils % ( Manual) 44L, Lymphocytes % (Manual) 12L, Monocytes % (Manual) 3, Eosinophils % ( Manual) 0, Basophils % (Manual) 0, Band Neutrophils 41H, Platelet Estimate DecreasedL, Platelet Morphology Normal, Anisocytosis 2+, Prothrombin Time 23.5H , Prothromb Time International Ratio 2.2H, Sodium Level 138, Potassium Level 5.3H, Chloride Level 101, Carbon Dioxide Level < 6*L, Anion Gap 31H, Blood Urea Nitrogen 10, Creatinine 1.7H, Estimat Glomerular Filtration Rate 41.5, Glucose Level 362H, Calcium Level 6.1L, Poikilocytosis 2+, Ovalocytes 1+ 02/20/17 06:00: White Blood Count 24.3*H, Red Blood Count 2.12L, Hemoglobin 6.2*L, Hematocrit 19.4L, Mean Corpuscular Volume 91, Mean Corpuscular Hemoglobin 29.3, Mean Corpuscular Hemoglobin Concent 32.1, Red Cell Distribution Width 15.0H, Platelet Count 68#L, Mean Platelet Volume 6.2L, Neutrophils (%) (Auto) , Lymphocytes (%) (Auto) , Monocytes (%) (Auto) , Eosinophils (%) (Auto) , Basophils (%) (Auto) , Differential Total Cells Counted 100, Neutrophils % ( Manual) 83H, Lymphocytes % (Manual) 5L, Monocytes % (Manual) 1, Eosinophils % ( Manual) 0, Basophils % (Manual) 0, Band Neutrophils 11H, Platelet Estimate DecreasedL, Platelet Morphology Normal, Hypochromasia 1+, Prothrombin Time 26.5H , Prothromb Time International Ratio 2.5H, Activated Partial Thromboplast Time > 150*H, Sodium Level 137, Potassium Level 5.1H, Chloride Level 98, Carbon Dioxide Level 8*L, Anion Gap 31H, Blood Urea Nitrogen 10, Creatinine 2.0H, Estimat Glomerular Filtration Rate 34.4, Glucose Level 386H, Calcium Level 6.1L , Total Bilirubin 1.2, Direct Bilirubin 0.6H, Aspartate Amino Transf (AST/SGOT) 2024H, Alanine Aminotransferase (ALT/SGPT) 1346H, Alkaline Phosphatase 42, Total Protein 2.4#L, Albumin 1.5L, Globulin 0.9, Albumin/Globulin Ratio 1.6, Amylase Level 565*H, Lipase 75H 02/20/17 09:12: Arterial Blood pH 7.179*L, Arterial Blood Partial Pressure CO2 60.0*H, Arterial Blood Partial Pressure O2 168.2H, Arterial Blood HCO3 21.8L, Arterial Blood Oxygen Saturation 97.6, Arterial Blood Base Excess -5.6, Darryl Test Positive Height (Feet): 5 Height (Inches): 9.00 Weight (Pounds): 170 Objective Restless, moving NCAT, intubated Supple Coarse ronchi RR Soft, more distended abd no edema ANDRE Bill Feb 20, 2017 11:23
--- NOTE | 2017-02-20 11:28 | Diagnostic Imaging Report ---
Indication: Dyspnea Comparison: None A single view chest radiograph was obtained. Findings: Stomach is markedly distended with air. Endotracheal tube is in good position. Lungs are clear. Heart size is normal. Bones are slightly osteopenic. Impression: Marked distention of the stomach. Endotracheal tube in good position
[2017-02-20] MEDS ORDERED: Phenylephrine 100 MG in NS 240 ML IV SCH (14:00)
--- NOTE | 2017-02-20 14:16 | Emergency Room Report ---
Physical Exam Code blue called. Patient with esophageal variceal bleed. Endoscopy last night. Continued bleeding and transfusion of blood and FFP. Hgb AM 6.3. On max levophed. Bicarb 4. Was on drip. Patient asystolic. Last 24 Hour Vital Signs Date Time Temp Pulse Resp B/P Pulse Ox O2 Delivery O2 Flow Rate FiO2 02/20/17 13:30 121 28 98/76 97 Mechanical Ventilator 100 02/20/17 13:10 124 30 100 02/20/17 13:00 129 28 68/38 97 Mechanical Ventilator 100 02/20/17 12:45 129 28 68/38 97 Mechanical Ventilator 100 02/20/17 12:30 118 26 51/25 100 Mechanical Ventilator 100 02/20/17 12:15 113 26 147/91 100 Mechanical Ventilator 100 02/20/17 12:00 112 02/20/17 12:00 100 02/20/17 12:00 98.8 113 28 160/95 100 Mechanical Ventilator 100 02/20/17 11:45 112 28 89/33 69 Mechanical Ventilator 100 02/20/17 11:32 69/32 02/20/17 11:30 110 28 43/27 70 Mechanical Ventilator 100 02/20/17 11:15 111 31 64/11 68 Mechanical Ventilator 100 02/20/17 11:08 110 32 100 02/20/17 11:00 110 29 64/11 69 Mechanical Ventilator 100 02/20/17 10:45 108 28 90/59 68 Mechanical Ventilator 100 02/20/17 10:30 107 29 62/47 69 Mechanical Ventilator 100 02/20/17 10:15 105 30 119/100 72 Mechanical Ventilator 100 02/20/17 10:04 119/100 02/20/17 10:04 119/100 02/20/17 10:00 103 32 80/34 71 Mechanical Ventilator 100 02/20/17 09:45 101 30 115/101 74 Mechanical Ventilator 100 02/20/17 09:30 99 30 80/34 75 Mechanical Ventilator 100 02/20/17 09:19 80/35 02/20/17 09:19 80/35 02/20/17 09:15 97.4 95 31 69/43 75 Mechanical Ventilator 100 02/20/17 09:10 99 29 100 02/20/17 09:00 97 29 85/57 76 Mechanical Ventilator 100 02/20/17 08:55 96 29 89/42 74 Mechanical Ventilator 100 02/20/17 08:30 97 29 92/31 76 Mechanical Ventilator 100 02/20/17 08:15 96 30 79/45 79 Mechanical Ventilator 100 02/20/17 08:00 93 02/20/17 08:00 79/45 02/20/17 08:00 79/45 02/20/17 08:00 91.4 95 30 78/45 71 Mechanical Ventilator 100 02/20/17 08:00 100 02/20/17 07:45 93 26 84/68 61 Mechanical Ventilator 100 02/20/17 07:42 115/69 02/20/17 07:30 93 26 115/69 97 Mechanical Ventilator 100 02/20/17 07:10 92 31 100 02/20/17 07:00 92 26 142/120 99 Mechanical Ventilator 100 02/20/17 06:30 92 26 129/95 99 Mechanical Ventilator 100 02/20/17 06:07 70/50 02/20/17 06:00 93 26 123/107 100 Mechanical Ventilator 100 02/20/17 05:30 93 26 77/31 100 Mechanical Ventilator 100 02/20/17 05:13 91 31 100 02/20/17 05:00 92 27 83/38 100 Mechanical Ventilator 100 02/20/17 04:30 96.0 92 26 74/46 100 Mechanical Ventilator 100 02/20/17 04:17 100 02/20/17 04:16 90 02/20/17 04:00 92 25 68/23 100 Mechanical Ventilator 100 02/20/17 03:30 91 25 79/37 100 Mechanical Ventilator 100 02/20/17 03:27 79/37 02/20/17 03:10 90 29 100 02/20/17 03:00 90 24 77/47 100 Mechanical Ventilator 100 02/20/17 02:30 92 25 94/40 100 Mechanical Ventilator 100 02/20/17 02:07 87/21 02/20/17 02:00 90 22 87/21 100 Mechanical Ventilator 100 02/20/17 01:30 91 27 76/27 100 Mechanical Ventilator 100 02/20/17 01:19 81/26 02/20/17 01:18 100 24 100 02/20/17 01:00 90 27 86/32 98 Mechanical Ventilator 100 02/20/17 00:52 74 20 100 02/20/17 00:50 89 20 100 02/20/17 00:30 88 27 94/31 95 Mechanical Ventilator 100 02/20/17 00:15 91 26 54/27 97 Mechanical Ventilator 100 02/20/17 00:00 100 02/20/17 00:00 96.0 90 26 46/25 100 Mechanical Ventilator 100 02/20/17 00:00 100 02/19/17 23:45 88 26 73/31 100 Mechanical Ventilator 100 02/19/17 23:30 91 25 66/24 100 Mechanical Ventilator 100 02/19/17 23:15 92 25 49/39 100 Mechanical Ventilator 100 02/19/17 23:05 105 25 100 02/19/17 23:00 20 02/19/17 23:00 95 25 60/28 100 Mechanical Ventilator 100 02/19/17 22:45 90 26 47/25 100 Mechanical Ventilator 100 02/19/17 22:30 94 27 51/21 100 Mechanical Ventilator 100 02/19/17 22:15 100 24 58/23 100 Mechanical Ventilator 100 02/19/17 22:00 88 27 57/18 100 Mechanical Ventilator 100 02/19/17 21:45 90 26 105/51 100 Mechanical Ventilator 100 02/19/17 21:34 90/47 02/19/17 21:30 85 25 90/47 100 Mechanical Ventilator 100 02/19/17 21:17 101 24 100 02/19/17 21:15 89 25 95/56 100 Mechanical Ventilator 100 02/19/17 21:00 90 27 95/39 100 Mechanical Ventilator 100 02/19/17 20:45 100 20 100/36 100 Mechanical Ventilator 100 02/19/17 20:39 100 02/19/17 20:30 102 24 105/39 100 Mechanical Ventilator 100 02/19/17 20:15 94.1 101 25 82/41 100 Mechanical Ventilator 100 02/19/17 20:15 101 02/19/17 20:15 94.1 96 29 97/39 100 Mechanical Ventilator 100 02/19/17 19:55 96 29 97/39 100 02/19/17 19:35 94.6 96 85/28 Mechanical Ventilator 100 02/19/17 19:30 96 30 85/28 02/19/17 19:20 114 24 100 02/19/17 19:03 98.8 102 29 69/27 100 Mechanical Ventilator 100 02/19/17 19:00 103 29 70/18 02/19/17 18:51 94.6 106 32 66/30 7 Room Air 100 02/19/17 18:37 171/111 02/19/17 18:37 31 02/19/17 18:30 109 27 02/19/17 18:29 95.0 110 56/43 Mechanical Ventilator 100 02/19/17 18:25 95.0 112 56/43 100 02/19/17 18:05 95.2 115 48/32 02/19/17 17:38 95.2 126 50/33 100 02/19/17 17:30 125 25 48/29 02/19/17 17:16 47/29 02/19/17 17:05 114 20 100 02/19/17 17:00 104 20 67/35 100 02/19/17 16:51 100 02/19/17 16:48 90/46 02/19/17 16:44 74/40 02/19/17 16:38 91/59 02/19/17 16:30 93 20 95/57 02/19/17 16:19 19 02/19/17 16:00 96.8 99 100/50 100 02/19/17 16:00 98 20 115/60 02/19/17 15:30 99 16 89/48 02/19/17 15:22 96.8 100 81/50 100 02/19/17 15:16 101 14 100 02/19/17 15:00 107 20 68/45 98 02/19/17 14:10 92 22 93/62 96 Room Air Sp02 EP Interpretation: reviewed, abnormal - low as interpreted by me General Appearance: other - unresponsive Head: normocephalic Eyes: bilateral eye other - edema, fixed and dilated ENT: moist mucus membranes, other - ETwith blood from GI tract Respiratory: lungs clear, normal breath sounds Cardiovascular #1: other - no sounds Cardiovascular #2: 0 femoral (L) - except with CPR Gastrointestinal: abnormal bowel sounds - decreased, distended Genitourinary: other - boone Musculoskeletal: other - flaccid Neurologic: other - flaccid and unresponsive Psychiatric: other - comatose/unresponsive Skin: other - slight pale CPR/Code Blue CPR/Code Blue Narrative CPR in progress and supervised by me. Code 13:48 Epi before I arrived. Asystolic. Pulses with CPR. Meds given during code: Bicarb X4, epi X 3 more. Patient remains in asystole. Patient demonstrates cardiopulmonary unresponsiveness. Code called and patient pronounced at 14:05. Medical Decision Making Diagnostic Impression: Primary Impression: Upper GI bleed Additional Impression: Cardiopulmonary arrest ER Course Patient with massive UGI bleed. On maximal pressors with metabolic acidosis. Asystolic arrest. See CPR note. Pronounced at 14:05. Rhythm Strip Diag. Results EP Interpretation: yes Rhythm: other - asystole Status: worsened Disposition: Condition: Referrals: [facility],REFERRING (PCP) Alexei Rosario M.D. Feb 20, 2017 14:16
--- NOTE | 2017-02-21 20:09 | Diagnostic Imaging Report ---
APPROVED REPORT CPT Code: 34979 Present Symptoms Lower Extremity Pain: Bilateral Comments: Right greater saphaneous femoral junction not visualised due to PICC line in the area. RIGHT LEG: Venous imaging reveals a patent deep venous system. There is no evidence of thrombus within the femoral, popliteal or tibial segments. Doppler indicates normal spontaneous flow within these segments. The common femoral and greater saphenous veins were not visualised due to a PICC line in the area. LEFT LEG: Venous imaging reveals a patent deep venous system. There is no evidence of thrombus within the femoral, popliteal or tibial segments. The greater saphenous vein is also within normal limits. Doppler indicates normal spontaneous flow within these segments
[2017-02-22 12:20] LABS: OTHERS PATHOLOGIST COMMENT
[2017-02-22 12:24] LABS: OTHERS PATHOLOGIST COMMENT
--- NOTE | 2017-02-22 14:31 | Discharge Summary ---
Discharge Summary Hospital Course Date of Admission Feb 19, 2017 at 15:00 Date of Discharge Feb 20, 2017 at 15:03 Admitting Diagnosis upper gi bleeding, anemia, syncope HPI Griffin Blanco is a 61 year old male who was admitted on Feb 19, 2017 at 15:00 for Upper Gastro Intestinal Bleed,Anemia,Syncope Hospital Course summary #[id number] Discharge Condition Upon Discharge: grave Discharge Disposition Patient Discharge Diagnoses: Discharge Instructions Discharge Instructions Special Instructions I have been assigned to complete a D/C Summary on this account. I was not involved in the patient management Emelina Hollingsworth NP ([place]) Feb 22, 2017 14:31
--- NOTE | 2017-02-23 | Discharge Summary 2 SIG ---
SUMMARY DATE OF ADMISSION: 02/19/2017 DATE OF EXPIRATION: 02/20/2017 REASON FOR ADMISSION: 61-year-old male with history of alcohol abuse and cirrhosis, was brought in by paramedics after large hematemesis. The patient reported large amount of blood vomiting and epigastric pain. The patient reported drinking alcohol earlier that day. The patient had syncopal episode with paramedics. Upon presentation, the patient was afebrile, blood pressure - 88/58. Lactic acid - 11.6, creatinine-1.3. Total bilirubin -1.3. Initial INR -1.2. WBC- 11.8. Central line was placed in ED for possible pressors since blood pressure was trending down. The patient was given blood transfusion and fresh frozen plasma, but blood pressure kept fluctuating. The patient was transferred to intensive care unit. INITIAL DIAGNOSIS: 1. Upper GI bleeding 2. Hematemesis 3. Hypotension 4. Anemia 5. ETOH abuse 6. Cirrhosis 7. Lactic acidosis 8. Coagulopathy 9. Acute renal failure HOSPITAL STAY: Subsequently, the patient was started on pressors, initially on Levophed and then on dopamine. Blood pressure remained low. Patient required emergency oral intubation for airway support and protection.. After the intubation , ABG revealed acute metabolic acidosis. ABG next day revealed acute hypercapnia. Settings were titrated, ventilator support provided. Pulmonary toilet provided. The patient was on bicarbonate drip, bicarbonate - 8 on 02/19/2017 and on 02/20/2017. The patient was continued to be bleeding, GI closely followed with serial CBC and coagulopathy panel. Platelets down to 16,000. INR up to 2.5. WBC up to 25.5. The patient undergone emergency upper endoscopy and found to have bleeding esophageal varices, apparently previously;y treated, status post clipping and band ligation. The patient was started on Sandostatin drip and PPI drip. The patient received total of 9 units of fresh frozen plasma and 12 units of packed red blood cells. Per GI prognosis was extremely poor due to hemodynamic instability and bleeding. Blood pressure remained unstable despite maximum doses of pressors. LFTs with trend up to 10 times: initially on presentation: AST- 33 and ALT- 16 , in the evening AST -290 and ALT- 190; next day in the morning: AST -2024 and ALT- 1346. Amylase up to 565. Lactic acid remained elevated. Renal failure worsened: creatinine up to 2.0. Code Gamaliel was called on 02/20/2017 at 1348 hours. Emergency room doctor arrived when CPR was in progress. One ampoule of epinephrine given prior to arrival of ED doctor. The patient was in asystole, with CPR noted pulse. During the code given total bicarb x4 and epinephrine - three more ampules, total of four. The patient continued to remain in asystole and demonstrated cardiopulmonary unresponsiveness. Code Blue was called. The patient was pronounced at 1405 hours. Cause of : cardiopulmonary arrest. FINAL DIAGNOSES: 1. Status post cardiac arrest. 2. Shock. 3. Acute respiratory failure, requiring intubation. 4. Upper gastrointestinal bleeding. 5. Large hematemesis due to bleeding esophageal varices 6. Bleeding esophageal varices . 7. Cirrhosis. 8. Anemia, requiring [id number] blood transfusion (12 u of PRBC) 9. Coagulopathy, requiring multiple transfusion of fresh frozen plasma ( total 9 units) 10.Acute renal failure. 11. Lactic acidosis. 12. Alcohol abuse 13. Status post upper endoscopy with clipping and banding. 14. Thrombocytopenia. 15. Shock liver Silvano Kent M.D. I have been assigned to dictate discharge summary on this account and I was not involved in the patient's management. Emelina BeltranBinghamton State Hospital) NMerryPMerry DR: FELIX JOB#: [id number] CC: PAPA
== END 2017-02-20 15:03 | disposition expired | DRG 229 ==
LOC: EDBD 13:37 → EMR 14:55 → ICU 15:00 → EDBEDREQ 16:34
PROC: 30233N1 Transfusion of Nonautologous Red Blood Cells into Peripheral Vein, Percutaneous Approach (ICD-10-PCS; 2017-02-19)
PROC: 5A1935Z Respiratory Ventilation, Less than 24 Consecutive Hours (ICD-10-PCS; 2017-02-19)
PROC: 0BH17EZ Insertion of Endotracheal Airway into Trachea, Via Natural or Artificial Opening (ICD-10-PCS; 2017-02-19)
PROC: 30233K1 Transfusion of Nonautologous Frozen Plasma into Peripheral Vein, Percutaneous Approach (ICD-10-PCS; 2017-02-19)
PROC: 06HM33Z Insertion of Infusion Device into Right Femoral Vein, Percutaneous Approach (ICD-10-PCS; 2017-02-19)
PROC: 06L34CZ Occlusion of Esophageal Vein with Extraluminal Device, Percutaneous Endoscopic Approach (ICD-10-PCS; principal; 2017-02-19 23:16)
PROC: 5A12012 Performance of Cardiac Output, Single, Manual (ICD-10-PCS; 2017-02-20)
DX: I85.11 Secondary esophageal varices with bleeding (principal); J96.00 Acute respiratory failure, unspecified whether with hypoxia or hypercapnia; K72.00 Acute and subacute hepatic failure without coma; R57.9 Shock, unspecified; N17.9 Acute kidney failure, unspecified; E87.2 Acidosis; D62 Acute posthemorrhagic anemia; D69.6 Thrombocytopenia, unspecified; K70.30 Alcoholic cirrhosis of liver without ascites; R55 Syncope and collapse; F10.229 Alcohol dependence with intoxication, unspecified; D68.4 Acquired coagulation factor deficiency
CPT/HCPCS: 36415; 36600; 71010; 80048; 80053; 82150; 82248; 82803; 82962; 83605; 83690; 85007; 85025; 85610; 85730; 86850; 86900; 86901; 86920; 86927; 87081; 93970; 94002; 94003; 94150; J2250; J2370; J2405